=== PATIENT | female | born 1970 | race African-American/Black ===

== ENCOUNTER 2016-08-02 08:48 | Emergency (ER) | payer SELFPAY ==
--- NOTE | 2016-08-02 09:36 | ER Document Report ---
ED General Pain - General Chief Complaint: Pain All Over Stated Complaint: BACK,STOMACH PAIN Time Seen by Provider: 08/02/16 09:33 Mode of Arrival: Ambulatory Information source: Patient Notes: Patient is a 45-year-old -[place] female who presents to the ER today for tightness in her upper back, shooting pains down both of her arms and legs occasionally for the past 3 weeks, Abdominal cramping in the middle of her abdomen "shooting up and down" and lack of a menstrual cycle since June 18. She did take a test at home and states that it was negative. She denies any injury to her back, abnormal discharge, fever, chills, dysuria, low back pain, nausea, vomiting, constipation or diarrhea. Her last bowel movement was yesterday and normal. TRAVEL OUTSIDE OF THE [place] IN LAST 30 DAYS: No - Related Data Allergies/Adverse Reactions: No Known Allergies Allergy (Verified 08/02/16 09:04) Past Medical History - General Information source: Patient - Social History Smoking Status: Unknown if Ever Smoked Family History: Reviewed & Not Pertinent Patient has suicidal ideation: No Patient has homicidal ideation: No - Past Medical History Cardiac Medical History: Reports: Hx Hypertension Neurological Medical History: Reports: Hx Migraine Renal/ Medical History: Denies: Hx Peritoneal Dialysis Past Surgical History: Reports: Hx Tubal Ligation - Immunizations Hx Diphtheria, Pertussis, Tetanus Vaccination: Yes Review of Systems - Review of Systems Constitutional: No symptoms reported EENT: No symptoms reported Cardiovascular: No symptoms reported Respiratory: No symptoms reported Gastrointestinal: See HPI Genitourinary: No symptoms reported Female Genitourinary: See HPI Musculoskeletal: See HPI Skin: No symptoms reported Hematologic/Lymphatic: No symptoms reported Neurological/Psychological: No symptoms reported Physical Exam - Vital signs Vitals: Temp Pulse Resp BP Pulse Ox 98.6 F 79 18 147/102 H 98 08/02/16 09:04 08/02/16 09:04 08/02/16 09:04 08/02/16 09:04 08/02/16 09:04 - Notes Notes: PHYSICAL EXAMINATION: GENERAL: Well-appearing and in no acute distress. HEAD: Atraumatic, normocephalic. EYES: Pupils equal round and reactive to light, extraocular movements intact, sclera anicteric, conjunctiva are normal. ENT: ear canals without erythema or foreign body, TMs pearly fernandez with good bony landmarks, nares patent, oropharynx clear without exudates. Moist mucous membranes. NECK: Normal range of motion, supple without lymphadenopathy LUNGS: CTAB and equal. No wheezes rales or rhonchi. HEART: Regular rate and rhythm without murmurs ABDOMEN: Soft, extremely mild periUmbilical, suprapubic and epigastric tenderness. No guarding, no rebound BACK: tender to trapezius muscles bilaterally, no vertebral tenderness, normal ROM GI/: no CVA tenderness EXTREMITIES: No tenderness to arms or legs, Normal range of motion, no pitting edema. No cyanosis. NEUROLOGICAL: Cranial nerves grossly intact. Normal sensory/motor exams. PSYCH: Normal mood, normal affect. SKIN: Warm, Dry, normal turgor, no rashes or lesions noted Course - Re-evaluation Re-evalutation: 08/02/16 13:42 Lab work all unremarkable today including a negative test. Patient feels better after muscle relaxer. Patient to follow-up with her [facility]. She declined pelvic exam today. 08/02/16 14:14 pt is up for discharge. She is now saying that she is unhappy with care because we did not address her chest pain that she says she told us about when she came in. When I have been in the room 3 times, she has not mentioned chest pain or shortness of breath. Her complaints were all limb pain with upper back pain and abdominal pain with no period since june 18. She has been asleep in the room every time I have gone in, I've woken her from a nap. I offered at this time to perform EKG, but she is angry and wants to leave. Her vitals are all stable. - Vital Signs Vital signs: Temp Pulse Resp BP Pulse Ox 98.6 F 79 18 147/102 H 98 08/02/16 09:04 08/02/16 09:04 08/02/16 09:04 08/02/16 09:04 08/02/16 09:04 - Laboratory Result Diagrams: 08/02/16 12:41 08/02/16 12:41 Laboratory results interpreted by me: 08/02/16 08/02/16 12:41 12:41 RDW 14.9 H Eosinophils % 6.1 H Direct Bilirubin 0.5 H Discharge - Discharge Clinical Impression: Abdominal cramping, Upper back pain Condition: Stable Disposition: HOME, SELF-CARE Additional Instructions: Return immediately for any new or worsening symptoms. Follow up with primary care provider, call tomorrow to make followup appointment. Prescriptions: Cyclobenzaprine HCl [Flexeril 10 mg Tablet] 10 mg PO TIDP PRN #15 tab PRN Reason: Forms: Return to Work Referrals: DOUG ROSARIO MD [Primary Care Provider] - Follow up as needed
[2016-08-02] MEDS ORDERED: CYCLOBENZAPRINE HCL 10 MG TABLET PO ONE (09:46)
[2016-08-02] MEDS ORDERED: NORMAL SALINE 1000 ML 1,000 ML IV ONE (10:15)
[2016-08-02 12:17] LABS: APPEARANCE,URINE SLIGHTLY-CLOUDY; BILIRUBIN,URINE NEGATIVE (NEGATIVE); GLUCOSE, URINE NEGATIVE (NEGATIVE); KETONES,URINE NEGATIVE (NEGATIVE); LEUKOCYTE ESTERASE,URINE NEGATIVE (NEGATIVE); NITRITE,URINE NEGATIVE (NEGATIVE); PROTEIN,URINE NEGATIVE (NEGATIVE); URINE SPECIFIC GRAVITY 1.013; UROBILINOGEN,URINE NEGATIVE mg/dL (<2.0)
[2016-08-02 12:54] LABS: ABSOLUTE BASOPHILS # (AUTO) 0.1 10^3/uL (0.0-0.2); ABSOLUTE EOSINOPHILS # (AUTO) 0.3 10^3/uL (0.0-0.6); ABSOLUTE LYMPHOCYTES (AUTO) 2.1 10^3/uL (0.5-4.7); ABSOLUTE MONOCYTES (AUTO) 0.4 10^3/uL (0.1-1.4); ABSOLUTE NEUT (AUTO) 2.7 10^3/uL (1.7-8.2); BASOPHILS % (AUTO) 1.1 % (0-2); EOSINOPHILS % (AUTO) 6.1 % (0-6); HEMATOCRIT 39.5 % (36.0-47.0); HEMOGLOBIN 12.8 g/dL (12.0-15.5); HGB HCT DIFFERENCE -1.1; LYMPHOCYTES % (AUTO) 37.6 % (13-45); MEAN CORPUSCULAR HEMOGLOBIN 27.7 pg (27.0-33.4); MEAN CORPUSCULAR HGB CONC 32.4 g/dL (32.0-36.0); MEAN CORPUSCULAR VOLUME 86 fl (80-97); MONOCYTES % (AUTO) 6.9 % (3-13); RED BLOOD COUNT 4.62 10^6/uL (3.72-5.28); RED CELL DISTRIBUTION WIDTH 14.9 % (11.5-14.0); SEGMENTED NEUTROPHILS % (AUTO) 48.3 % (42-78); WHITE BLOOD COUNT 5.5 10^3/uL (4.0-10.5)
[2016-08-02 13:12] LABS: ALANINE AMINOTRANSFERASE 21 U/L (9-52); ALBUMIN 4.2 g/dL (3.5-5.0); ALKALINE PHOSPHATASE 75 U/L (38-126); ANION GAP 10 (5-19); ASPARTATE AMINO TRANSFERASE 16 U/L (14-36); BILIRUBIN,DIRECT 0.5 mg/dL (0.0-0.4); BILIRUBIN,TOTAL 0.7 mg/dL (0.2-1.3); BLOOD UREA NITROGEN 20 mg/dL (7-20); CALCIUM 9.7 mg/dL (8.4-10.2); CARBON DIOXIDE 27 mmol/L (22-30); CHLORIDE 106 mmol/L (98-107); CREATININE RESULT 0.89 mg/dL (0.52-1.25); GLUCOSE 91 mg/dL (75-110); LIPASE 79.5 U/L (23-300); POTASSIUM 4.3 mmol/L (3.6-5.0); SODIUM 143.2 mmol/L (137-145); TOTAL PROTEIN 7.4 g/dL (6.3-8.2)
[2016-08-02 14:57] VITALS: BP 149/93
== END 2016-08-02 14:55 | disposition home or self-care (01) ==
LOC: ER 08:48
DX: M54.6 Pain in thoracic spine (principal); R10.33 Periumbilical pain; R10.13 Epigastric pain; I10 Essential (primary) hypertension; Z86.51 Personal history of combat and operational stress reaction
CPT/HCPCS: 99283; 96360; 96361; 36415; 83690; 84703; 85025; 80053; 81001; J7030

== ENCOUNTER 2016-10-04 17:43 | Emergency (ER) | payer SELFPAY ==
[2016-10-04] MEDS ORDERED: ASPIRIN 81 MG TABLET, CHEWABLE PO ONE (18:25)
--- NOTE | 2016-10-04 18:34 | ER Document Report ---
ED Medical Screen (RME) - General Chief Complaint: Chest Pain Stated Complaint: CHEST PAINS Time Seen by Provider: 10/04/16 18:21 Information source: Patient, [facility] Records TRAVEL OUTSIDE OF THE [place] IN LAST 30 DAYS: No - HPI Onset: Other Onset/Duration: Gradual, Waxing and waning Quality of pain: Sharp Severity: Mild Associated Symptoms: Other - pedal edema Similar symptoms previously: Yes Recently seen / treated by doctor: No Notes: 10/04/16 18:32 Patient is a 46-year-old female with history of multiple medical problems. Patient presents with several days of sharp left-sided chest pain which is spontaneous in onset and resolution. Patient states she has these pains for quite some time and has never been given diagnosis. Patient presents today out of concern for these pains associated with lower extremity swelling. No shortness of breath. No nausea or sweats. Patient also reports a sore throat. No fevers or chills. - Related Data Allergies/Adverse Reactions: No Known Allergies Allergy (Verified 10/04/16 18:12) Past Medical History - General Information source: Patient, [facility] Records - Social History Frequency of alcohol use: None Drug Abuse: None - Past Medical History Cardiac Medical History: Reports: Hx Hypertension Neurological Medical History: Reports: Hx Migraine Renal/ Medical History: Denies: Hx Peritoneal Dialysis Past Surgical History: Reports: Hx Tubal Ligation - Immunizations Hx Diphtheria, Pertussis, Tetanus Vaccination: Yes Review of Systems - Review of Systems EENT: Throat pain Cardiovascular: Chest pain, Edema -: Yes All other systems reviewed and negative Physical Exam - Vital signs Vitals: Temp Pulse Resp BP Pulse Ox 98.3 F 87 16 149/97 H 95 10/04/16 17:58 10/04/16 17:58 10/04/16 17:58 10/04/16 17:58 10/04/16 17:58 Interpretation: Normal - General General appearance: Appears well, Alert - HEENT Head: Normocephalic, Atraumatic Eyes: Normal Pupils: PERRL - Respiratory Respiratory status: No respiratory distress Chest status: Nontender Breath sounds: Normal Chest palpation: Normal - Cardiovascular Rhythm: Regular Heart sounds: Normal auscultation Murmur: No - Abdominal Inspection: Normal Distension: No distension Bowel sounds: Normal Tenderness: Nontender Organomegaly: No organomegaly - Back Back: Normal, Nontender - Extremities General upper extremity: Normal inspection, Nontender, Normal color, Normal ROM , Normal temperature. No: Edema General lower extremity: Normal inspection, Nontender, Normal color, Normal ROM , Normal temperature, Normal weight bearing. No: Edema, Tanvir's sign - Neurological Neuro grossly intact: Yes Cognition: Normal Orientation: AAOx4 [place] Coma Scale Eye Opening: Spontaneous Braxton Coma Scale Verbal: Oriented [place] Coma Scale Motor: Obeys Commands Braxton Coma Scale Total: 15 Speech: Normal Motor strength normal: LUE, RUE, LLE, RLE Sensory: Normal - Psychological Associated symptoms: Normal affect, Normal mood - Skin Skin Temperature: Warm Skin Moisture: Dry Skin Color: Normal Course - Re-evaluation Re-evalutation: 10/04/16 18:34 Patient will be taken to the back treatment area for further evaluation and management. Disposition will be by ED provider who continues her care. - Vital Signs Vital signs: Temp Pulse Resp BP Pulse Ox 98.3 F 87 18 149/97 H 95 10/04/16 17:58 10/04/16 17:58 10/04/16 18:15 10/04/16 17:58 10/04/16 17:58 - EKG Interpretation by Co EKG shows normal: Sinus rhythm Rate: Normal - 84 [place]/QRS: Left axis deviation Additional EKG results interpreted by ri: 10/04/16 18:[address]-T wave changes noted
--- NOTE | 2016-10-04 19:00 | RADIOLOGY REPORT (SQ) ---
EXAM DESCRIPTION: CHEST SINGLE VIEW COMPLETED DATE/TIME: 10/04/2016 6:53 pm REASON FOR STUDY: cp COMPARISON: None. EXAM PARAMETERS: NUMBER OF VIEWS: One view. TECHNIQUE: Single frontal radiographic view of the chest acquired. RADIATION DOSE: NA LIMITATIONS: None. FINDINGS: LUNGS AND PLEURA: No opacities, masses or pneumothorax. No pleural effusion. MEDIASTINUM AND HILAR STRUCTURES: No masses. Contour normal. HEART AND VASCULAR STRUCTURES: Heart normal in size. Normal vasculature. BONES: No acute findings. HARDWARE: None in the chest. OTHER: No other significant finding. IMPRESSION: NO ACUTE RADIOGRAPHIC FINDING IN THE CHEST. TECHNICAL DOCUMENTATION: JOB ID: [id number]
--- NOTE | 2016-10-04 19:08 | EKG REPORT ---
SEVERITY:- BORDERLINE ECG - SINUS RHYTHM LEFT AXIS DEVIATION BORDERLINE T ABNORMALITIES, ANTERIOR LEADS : Confirmed by: Jose C Gaines MD 04-Oct-2016 19:07:02
--- NOTE | 2016-10-04 19:19 | ER Document Report ---
ED General - General Chief Complaint: Chest Pain Stated Complaint: CHEST PAINS Time Seen by Provider: 10/04/16 18:21 Notes: The patient is a 46-year-old female, past medical history hypertension, migraines, presents with 1 day of left ankle swelling and mild calf pain. In addition, she has had several months of sharp left-sided chest pain that begins at rest and quickly goes away. In addition, she is having mild abdominal cramping intermittently over the past several days. She is going through menopause at this time. Denies current chest pain, nausea, vomiting, shortness of breath, urinary symptoms, flank pain, fevers, hematuria, dysuria, rash, numbness or tingling. TRAVEL OUTSIDE OF THE [place] IN LAST 30 DAYS: No - Related Data Allergies/Adverse Reactions: No Known Allergies Allergy (Verified 10/04/16 18:12) Past Medical History - General Information source: Patient, [facility] Records - Social History Smoking Status: Never Smoker Frequency of alcohol use: None Drug Abuse: None Family History: Reviewed & Not Pertinent Patient has suicidal ideation: No - Past Medical History Cardiac Medical History: Reports: Hx Hypertension Neurological Medical History: Reports: Hx Migraine Renal/ Medical History: Denies: Hx Peritoneal Dialysis Past Surgical History: Reports: Hx Tubal Ligation - Immunizations Hx Diphtheria, Pertussis, Tetanus Vaccination: Yes Review of Systems - Review of Systems Notes: REVIEW OF SYSTEMS: CONSTITUTIONAL: -fevers, -chills EENT: -eye pain, -difficulty swallowing, -nasal congestion CARDIOVASCULAR: +chest pain, -syncope. RESPIRATORY: -cough, -SOB GASTROINTESTINAL: -abdominal pain, -nausea, -vomiting, -diarrhea GENITOURINARY: -dysuria, -hematuria MUSCULOSKELETAL: +left ankle swelling, -back pain, -neck pain SKIN: -rash or skin lesions. HEMATOLOGIC: -easy bruising or bleeding. LYMPHATIC: -swollen, enlarged glands. NEUROLOGICAL: -altered mental status or loss of consciousness, -headache, - neurologic symptoms PSYCHIATRIC: -anxiety, -depression. ALL OTHER SYSTEMS REVIEWED AND NEGATIVE. Physical Exam - Vital signs Vitals: Temp Pulse Resp BP Pulse Ox 98.3 F 87 16 149/97 H 95 10/04/16 17:58 10/04/16 17:58 10/04/16 17:58 10/04/16 17:58 07/11/17 17:58 - Notes Notes: PHYSICAL EXAMINATION: GENERAL: Well-appearing, well-nourished and in no acute distress. HEAD: Atraumatic, normocephalic. EYES: Pupils equal round and reactive to light, extraocular movements intact, sclera anicteric, conjunctiva are normal. ENT: nares patent, oropharynx clear without exudates. Moist mucous membranes. NECK: Normal range of motion, supple without lymphadenopathy LUNGS: Breath sounds clear to auscultation bilaterally and equal. No wheezes rales or rhonchi. HEART: Regular rate and rhythm without murmurs ABDOMEN: Soft, nontender, normoactive bowel sounds. No guarding, no rebound. No masses appreciated. EXTREMITIES: 1+ pitting edema in left ankle, normal range of motion. No cyanosis. NEUROLOGICAL: Cranial nerves grossly intact. Normal speech, normal gait. Normal sensory and motor exams. PSYCH: Normal mood, normal affect. SKIN: Warm, Dry, normal turgor, no rashes or lesions noted. Course - Re-evaluation Re-evalutation: HEART score is 3. PERC negative. Repeat EKGs and troponin does not show any evidence of active ischemia. Her left lower extremity ultrasound does not show evidence of DVT. Other labs and urine are unremarkable and she is not . Instructed her to follow-up with her primary care physician for further evaluation of her chest pain also instructed her to wear compression stockings and keep her leg elevated for her mild peripheral edema. Given strict return precautions and she understands. - Vital Signs Vital signs: Temp Pulse Resp BP Pulse Ox 98.3 F 87 18 149/97 H 95 10/04/16 17:58 10/04/16 17:58 10/04/16 18:15 10/04/16 17:58 10/04/16 17:58 - Laboratory Result Diagrams: 10/04/16 21:10 10/04/16 21:10 Laboratory results interpreted by me: 10/04/16 10/04/16 21:10 21:10 Hgb 11.7 L RDW 14.7 H Chloride 109 H - Diagnostic Test Radiology reviewed: Image reviewed, Reports reviewed Radiology results interpreted by me: CXR: NAD LLE US: No DVT - EKG Interpretation by Me EKG shows normal: Sinus rhythm, [place], Intervals, QRS Complexes Rate: Normal Additional EKG results interpreted by me: Non-specific T-wave changes in anterior leads Discharge - Discharge Clinical Impression: Peripheral edema Chest pain Qualifiers: Chest pain type: unspecified Qualified Code(s): R07.9 - Chest pain, unspecified Condition: Stable Disposition: HOME, SELF-CARE Additional Instructions: CHEST PAIN OF UNCLEAR CAUSE: The exact cause of your chest pain isn't clear. Fortunately, there is no evidence of a dangerous medical condition. Further testing may be required to find the source of the pain. Most often, we find that this pain is coming from the chest wall -- the muscles or rib joints in the chest. But chest pain can come from the lung and lung lining, the esophagus, the heart valves or heart lining, and even the stomach or gallbladder. Rest. Eat lightly until the pain is gone. We may prescribe medicine for pain and inflammation. You should call the physician immediately if the pain radiates to the shoulder, jaw or arms; if you start to run a fever or develop a cough; or if you develop shortness of breath, or other new or alarming symptoms. NORMAL EXAM AND WORKUP: At this time, your examination and workup show no significant abnormality. No significant abnormal physical findings were noted. All laboratory, EKG, and imaging (x-ray, CT scans, ultrasound) studies that were ordered show no significant abnormality. Although your examination and all studies that were ordered showed no significant abnormal finding, there are no examinations and no studies that are 100% accurate. There is always the possibility that some abnormality could exist and not be detected with physical examination or within the limits and capabilities of laboratory and other studies. You should return or follow up as you were instructed on your visit today for further evaluation if your symptoms do not resolve. CHEST WALL PAIN: Your chest pain may be coming from the chest wall. This is often caused by straining the muscles or joints in the chest during physical activity, direct trauma, coughing, or vigorous vomiting. Persons with arthritis are especially prone to this type of pain, due to inflammation of the cartilage joints near the breast bone. Occasionally, no cause can be found. Rest from strenuous physical activity. This kind of chest pain is usually made worse by movement of the chest. Depending on the symptoms, we may prescribe medicine for pain, muscle relaxation, and antiinflammatory effects. If the pain is new, and seems to be due to muscle strain, cold packs can help. Otherwise, apply gentle warmth to the painful area for 15 minutes every hour or two. You should call contact the doctor immediately if things change. Further evaluation is needed if you develop a fever or cough, if the nature of the pain changes, or if you become short of breath. ANGINA EPISODE: Your physician has diagnosed the pain you experienced as an episode of angina. Angina occurs when a portion of the heart muscle temporarily lacks oxygen. It does not cause any permanent heart damage, but serves as a warning. Hospitalization is not necessary now. Evaluation of your cardiac condition , and medical therapy for angina will be necessary. It's important you be sure to keep all appointments and take medication exactly as prescribed. Angina is usually treated with a type of "nitrate" medication. This is available as ointment, pills, or sublingual (under the tongue) tablets. Depending on your clinical situation, other medications may be added to help control angina. These may include beta blockers or calcium blockers. If episodes of angina are occurring with increased frequency, or if chest pain lasts longer than 15 minutes or does not respond to nitroglycerin, you must seek emergency medical care immediately. ACID REFLUX DISEASE (GERD): Gastro-Esophageal Reflux Disease (GERD) is caused by stomach acid refluxing back up into the esophagus. The valve at the end of the esophagus may be weak. This is common in persons with a hiatal hernia. GERD symptoms can include indigestion, chest pain, heartburn, or food "sticking." Certain foods, alcohol, and aspirin can make GERD worse. Treatment depends on the severity. Usually, antacids or acid-suppressing medicines are used. When the esophagus is acutely inflamed, the physician will often prescribe membrane-protective drugs such as Carafate. Some patients benefit from medication such as Reglan that tightens the valve at the top of the stomach. Avoid those foods that bring on your symptoms. For many people, these foods are coffee, chocolate, onions, garlic, and carbonated drinks. Don't use alcohol, aspirin, caffeine, or tobacco. Don't eat late at night -- within 4 hours of bedtime. Don't over-eat. If necessary, elevate the head of your bed about 4 inches so that stomach acid will not roll up into your esophagus. Call the doctor if you develop severe chest pain, inability to swallow fluids, fever, or worsening symptoms. FOLLOW-UP CARE: If you have been referred to a physician for follow-up care, call the physician s office for an appointment as you were instructed or within the next two days. If you experience worsening or a significant change in your symptoms, notify the physician immediately or return to the Emergency Department at any time for re-evaluation. ABDOMINAL PAIN: There are many causes of abdominal pain. Pain can mean a serious problem requiring surgery (such as appendicitis). It can also be an innocent problem that goes away on its own (such as a viral infection). Often, time must pass to determine the cause of pain. The physician does not feel that hospitalization is necessary, at present. Things may change within the next 24 hours. Call the doctor or come back for re- examination if any problems occur, such as: (1) Pain that becomes more severe, steady, or becomes concentrated in one specific area. Also, pain that is more severe with movement or coughing. (2) Vomiting that persists or becomes more frequent. (3) Blood in the vomitus, urine, or bowel movements. Blood in the stool may have a tarry or black appearance. (4) Shaking chills or fever greater than 100 degrees F. (5) The abdomen becomes more distended or swollen. (6) Bowel movements cease. (7) Failure to improve as expected. NORMAL EXAM AND WORKUP: At this time, your examination and workup show no significant abnormality. No significant abnormal physical findings are noted. All laboratory, EKG, and imaging (x-ray, CT scans, ultrasound) studies that were ordered show no significant abnormality. Although your examination and all studies that were ordered showed no significant abnormal finding, there are no examinations and no studies that are 100% accurate. There is always the possibility that some abnormality could exist and not be detected with physical examination or within the limits and capabilities of laboratory and other studies. You should return or follow up as you were instructed on your visit today for further evaluation if your symptoms do not resolve. FOLLOW-UP CARE: If you have been referred to a physician for follow-up care, call the physician s office for an appointment as you were instructed or within the next two days. If you experience worsening or a significant change in your symptoms, notify the physician immediately or return to the Emergency Department at any time for re-evaluation.
[2016-10-04 20:07] LABS: APPEARANCE,URINE SLIGHTLY-CLOUDY; BILIRUBIN,URINE NEGATIVE (NEGATIVE); GLUCOSE, URINE NEGATIVE (NEGATIVE); KETONES,URINE NEGATIVE (NEGATIVE); LEUKOCYTE ESTERASE,URINE NEGATIVE (NEGATIVE); NITRITE,URINE NEGATIVE (NEGATIVE); PROTEIN,URINE NEGATIVE (NEGATIVE); URINE SPECIFIC GRAVITY 1.024; UROBILINOGEN,URINE NEGATIVE mg/dL (<2.0)
[2016-10-04] MEDS ORDERED: NITROGLYCERIN 0.4 MG/TAB 25 TAB/BOTTLE SL PRN (20:37)
[2016-10-04 21:22] LABS: ABSOLUTE EOSINOPHILS # (AUTO) 0.5 10^3/uL (0.0-0.6); ABSOLUTE LYMPHOCYTES (AUTO) 2.7 10^3/uL (0.5-4.7); ABSOLUTE MONOCYTES (AUTO) 0.6 10^3/uL (0.1-1.4); ABSOLUTE NEUT (AUTO) 4.3 10^3/uL (1.7-8.2); BASOPHILS % (AUTO) 0.5 % (0-2); HEMOGLOBIN 11.7 g/dL (12.0-15.5); HGB HCT DIFFERENCE -0.9; LYMPHOCYTES % (AUTO) 33.6 % (13-45); MEAN CORPUSCULAR HEMOGLOBIN 27.3 pg (27.0-33.4); MEAN CORPUSCULAR HGB CONC 32.4 g/dL (32.0-36.0); MEAN CORPUSCULAR VOLUME 84 fl (80-97); MONOCYTES % (AUTO) 7.4 % (3-13); RED BLOOD COUNT 4.27 10^6/uL (3.72-5.28); RED CELL DISTRIBUTION WIDTH 14.7 % (11.5-14.0); SEGMENTED NEUTROPHILS % (AUTO) 52.5 % (42-78); WHITE BLOOD COUNT 8.2 10^3/uL (4.0-10.5)
[2016-10-04 21:40] LABS: ALANINE AMINOTRANSFERASE 26 U/L (9-52); ALBUMIN 3.8 g/dL (3.5-5.0); ALKALINE PHOSPHATASE 79 U/L (38-126); ANION GAP 8 (5-19); ASPARTATE AMINO TRANSFERASE 19 U/L (14-36); BILIRUBIN,DIRECT 0.3 mg/dL (0.0-0.4); BILIRUBIN,TOTAL 0.4 mg/dL (0.2-1.3); BLOOD UREA NITROGEN 17 mg/dL (7-20); CARBON DIOXIDE 24 mmol/L (22-30); CHLORIDE 109 mmol/L (98-107); CREATININE RESULT 0.84 mg/dL (0.52-1.25); GLUCOSE 106 mg/dL (75-110); POTASSIUM 4.3 mmol/L (3.6-5.0)
[2016-10-04 21:53] LABS: TROPONIN I < 0.012 ng/mL
[2016-10-05 02:01] VITALS: BP 135/100
--- NOTE | 2016-10-05 08:11 | EKG REPORT ---
SEVERITY:- BORDERLINE ECG - SINUS RHYTHM LEFT AXIS DEVIATION BORDERLINE T ABNORMALITIES, ANTERIOR LEADS : Confirmed by: Jose C Gaines MD 05-Oct-2016 08:11:03
--- NOTE | 2016-10-05 13:11 | XCELERA REPORT ---
[address] [address] Lower Extremity Venous Evaluation Name: ANAIS AVILEZ Age: 46 yrs Gender: Female : 1970 Patient Status: Emergency Patient Location: ER Study Date: 10/04/2016 08:22 PM Procedure: Color flow and duplex imaging of the veins of the left lower extremity as well as the right Common Femoral vein. Reason For Study: left leg swelling Ordering Physician: KETURAH NAVA Performed By: Geo Levy Right Sided Venous Evaluation The right common femoral vein is fully compressible. Spontaneous and phasic flow is present in the right common femoral vein. Left Sided Venous Evaluation Normal vessel filling wall to wall, compression and augmentation as well as Colour flow down to the infrageniculate veins. Critical Findings Called in to Dr Nava in the ER. Interpretation Summary No duplex evidence of DVT or obstruction in the left lower extremity nor in the right Common Femoral vein. : KETURAH NAVA > Ian Mcneil
== END 2016-10-05 00:45 | disposition home or self-care (01) ==
LOC: ER 17:43
DX: R60.9 Edema, unspecified (principal); R07.9 Chest pain, unspecified; I10 Essential (primary) hypertension; Z98.51 Tubal ligation status
CPT/HCPCS: 36415; 71010; 80053; 81001; 81025; 83880; 84484; 85025; 93005; 93010; 93971; 99285

== ENCOUNTER 2016-11-15 15:30 | Emergency (ER) | payer SELFPAY ==
[2016-11-15 15:35] VITALS: BP 135/96
--- NOTE | 2016-11-15 16:45 | ER Document Report ---
ED General - General Chief Complaint: Eye Pain Stated Complaint: EYE PAIN Time Seen by Provider: 11/15/16 16:22 Mode of Arrival: Ambulatory Notes: 26-year-old female presents to ED for complaint of not being able to sleep and burning in her eyes and then during the day being very sleepy at work. States this is been going on for couple weeks. She states she will be start thinking in the middle of the night and then she cannot go to sleep. TRAVEL OUTSIDE OF THE [place] IN LAST 30 DAYS: No - HPI Onset: Other - Couple weeks Onset/Duration: Intermittent Quality of pain: Burning Severity: Moderate Pain Level: 3 Associated symptoms: Other - Insomnia, eyes burning, feeling anxious. 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 Lives with: Family Family History: Reviewed & Not Pertinent Patient has suicidal ideation: No Patient has homicidal ideation: No - Past Medical History Cardiac Medical History: Reports: Hx Hypertension Pulmonary Medical History: Reports: None EENT Medical History: Reports: None Neurological Medical History: Reports: Hx Migraine Endocrine Medical History: Reports: None Renal/ Medical History: Reports: None Malignancy Medical History: Reports: None GI Medical History: Reports: None Musculoskeltal Medical History: Reports None Skin Medical History: Reports None Psychiatric Medical History: Reports: None Traumatic Medical History: Reports: None Infectious Medical History: Reports: None Past Surgical History: Reports: Hx Tubal Ligation, Other - lazer eye surgery - Immunizations Hx Diphtheria, Pertussis, Tetanus Vaccination: Yes Review of Systems - Review of Systems EENT: Eye pain - buring. denies: Eye discharge, Blurred vision, Tearing, Double vision Respiratory: Short of breath - when she can't sleep at night but not at this time Gastrointestinal: No symptoms reported Genitourinary: No symptoms reported Female Genitourinary: No symptoms reported Musculoskeletal: No symptoms reported Skin: No symptoms reported Hematologic/Lymphatic: No symptoms reported Neurological/Psychological: Other - insomnia -: Yes All other systems reviewed and negative Physical Exam - Vital signs Vitals: Temp Pulse BP Pulse Ox 99.0 F 89 135/96 H 95 11/15/16 15:33 11/15/16 15:33 11/15/16 15:33 11/15/16 15:33 Interpretation: Normal - General General appearance: Appears well, Alert - HEENT Head: Normocephalic, Atraumatic Eyes: Normal Conjunctiva: Normal Cornea: Normal Extraocular movements intact: Yes Eyelashes: Normal Pupils: PERRL Visual acuity- Right eye: 20/30 Visual acuity- Left eye: 20/30 Visual acuity- Both eyes: 20/30 Corrective lenses worn: No Lids everted for exam: bilateral: Normal Anterior chamber: Normal Fundascopic: Normal Visual dunn normal: Yes Ears: Normal External canal: Normal Tympanic membrane: Normal Sinus: Normal Nasal: Normal Mouth/Lips: Normal Pharynx: Normal Neck: Normal - Respiratory Respiratory status: No respiratory distress Chest status: Nontender Breath sounds: Normal Chest palpation: Normal - Cardiovascular Rhythm: Regular Heart sounds: Normal auscultation Murmur: No - Abdominal Inspection: Normal Distension: No distension Bowel sounds: Normal Tenderness: Nontender Organomegaly: No organomegaly - Back Back: Normal, Nontender - Extremities General upper extremity: Normal inspection, Nontender, Normal color, Normal ROM , Normal temperature General lower extremity: Normal inspection, Nontender, Normal color, Normal ROM , Normal temperature, Normal weight bearing. No: Tanvir's sign - Neurological Neuro grossly intact: Yes Cognition: Normal Orientation: AAOx4 Braxton Coma Scale Eye Opening: Spontaneous Braxton Coma Scale Verbal: Oriented Braxton Coma Scale Motor: Obeys Commands [place] Coma Scale Total: 15 Speech: Normal Motor strength normal: LUE, RUE, LLE, RLE Sensory: Normal - Psychological Associated symptoms: Normal affect, Normal mood - Skin Skin Temperature: Warm Skin Moisture: Dry Skin Color: Normal Course - Re-evaluation Re-evalutation: 11/15/16 16:[address] Sandoval as her exam was negative for me. He went in and examined the patient he and he agreed that the examination was negative. He stated that she will need to follow-up with the street light inspector. - Vital Signs Vital signs: Temp Pulse Resp BP Pulse Ox 99.0 F 89 135/96 H 95 11/15/16 15:33 11/15/16 15:33 11/15/16 15:33 11/15/16 15:33 Discharge - Discharge Clinical Impression: Insomnia Qualifiers: Insomnia type: unspecified Qualified Code(s): G47.00 - Insomnia, unspecified Eye pain Qualifiers: Laterality: bilateral Qualified Code(s): H57.13 - Ocular pain, bilateral Condition: Stable Disposition: HOME, SELF-CARE Additional Instructions: Insomnia Everybody has trouble sleeping now and then. When it becomes a frequent problem, you must look for an underlying cause. Depression can interfere with sleep. Anxiety keeps people from falling asleep, while true depression causes fitful sleep and early awakening. If you think anxiety or depression might be your problem, your doctor can help. Many medicines can interfere with sleep. Try cutting back or eliminating caffeine. Watch out for "energizing" vitamins and herbs! Alcohol interferes powerfully with normal sleep. "Rebound insomnia" results when you stop taking sedating medicines like antihistamines, antianxiety medicine, or sleeping pills. Any medical problem that causes pain or bladder discomfort can interfere with sleep. Discuss any problem you have with your doctor. Get regular exercise. Have regular sleep times. Don't "sleep in." Avoid late afternoon naps. Sleeping pills may be temporarily helpful, but are never a long-term solution. He was seen today for bilateral eye pain for over a week. Your eye exam was negative. We are recommending you follow-up with street light inspector which is strategic sourcing specialist for your eye burning pain. Use Tylenol or ibuprofen PM for your insomnia, you can also use Unisom or Benadryl. These will help you to go to sleep. You could use [id number]-[id number] allergy eyedrops and to you can follow-up with the street light inspector. You will also need to follow-up with your primary doctor for your insomnia FOLLOW-UP CARE: If you have been referred to a physician for follow-up care, call the physician s office for an appointment as you were instructed or within the next two days. If you experience worsening or a significant change in your symptoms, notify the physician immediately or return to the Emergency Department at any time for re-evaluation. Forms: Elevated Blood Pressure Referrals: DOUG ROSARIO MD [Primary Care Provider] - Follow up as needed NICOLE BRICE DO [ACTIVE STAFF] - Follow up as needed
== END 2016-11-15 17:22 | disposition home or self-care (01) ==
LOC: ER 15:30
DX: H57.13 Ocular pain, bilateral (principal); G47.00 Insomnia, unspecified; I10 Essential (primary) hypertension
CPT/HCPCS: 99283

== ENCOUNTER 2016-12-08 09:02 | Emergency (ER) | payer SELFPAY ==
[2016-12-08] MEDS ORDERED: ASPIRIN 325 MG TABLET PO ONE (09:51)
--- NOTE | 2016-12-08 09:53 | ER Document Report ---
ED Medical Screen (RME) - General Chief Complaint: Abdominal Pain Stated Complaint: CHEST PAIN, ABDOMINAL PAIN Time Seen by Provider: 12/08/16 09:50 Mode of Arrival: Ambulatory Information source: Patient TRAVEL OUTSIDE OF THE [place] IN LAST 30 DAYS: No - HPI Patient complains to provider of: chest/abd pain Onset: Other - pt with onset of chest and abdominal pain yesterday. Has not taken ASA. - Related Data Allergies/Adverse Reactions: No Known Allergies Allergy (Verified 12/08/16 09:18) Past Medical History - Social History Chew tobacco use (# tins/day): No Frequency of alcohol use: Occasional Drug Abuse: None - Past Medical History Cardiac Medical History: Reports: Hx Hypertension Neurological Medical History: Reports: Hx Migraine Renal/ Medical History: Denies: Hx Peritoneal Dialysis Past Surgical History: Reports: Hx Tubal Ligation, Other - lazer eye surgery - Immunizations Hx Diphtheria, Pertussis, Tetanus Vaccination: Yes Physical Exam - Vital signs Vitals: Temp Pulse Resp BP Pulse Ox 98.5 F 73 14 152/97 H 100 12/08/16 09:18 12/08/16 09:18 12/08/16 09:18 12/08/16 09:18 12/08/16 09:18 Course - Vital Signs Vital signs: Temp Pulse Resp BP Pulse Ox 98.5 F 73 14 152/97 H 100 12/08/16 09:18 12/08/16 09:18 12/08/16 09:18 12/08/16 09:18 12/08/16 09:18
[2016-12-08 10:12] LABS: APPEARANCE,URINE SLIGHTLY-CLOUDY; BILIRUBIN,URINE NEGATIVE (NEGATIVE); GLUCOSE, URINE NEGATIVE (NEGATIVE); KETONES,URINE NEGATIVE (NEGATIVE); LEUKOCYTE ESTERASE,URINE NEGATIVE (NEGATIVE); NITRITE,URINE NEGATIVE (NEGATIVE); PROTEIN,URINE NEGATIVE (NEGATIVE); URINE SPECIFIC GRAVITY 1.016; UROBILINOGEN,URINE NEGATIVE mg/dL (<2.0)
--- NOTE | 2016-12-08 10:14 | EKG REPORT ---
SEVERITY:- BORDERLINE ECG - SINUS RHYTHM LEFT AXIS DEVIATION BORDERLINE T WAVE ABNORMALITIES : Confirmed by: Samy Torres 08-Dec-2016 10:14:07
--- NOTE | 2016-12-08 10:28 | ER Document Report ---
ED GI/ - General Chief Complaint: Abdominal Pain Stated Complaint: CHEST PAIN, ABDOMINAL PAIN Time Seen by Provider: 12/08/16 09:50 Mode of Arrival: Ambulatory Information source: Patient TRAVEL OUTSIDE OF THE [place] IN LAST 30 DAYS: No - HPI Patient complains to provider of: Abdominal pain Onset: Yesterday Timing/Duration: Sudden Quality of pain: Sharp, Stabbing Severity at maximum: Moderate Severity in ED: Moderate Location: Epigastric Associated symptoms: Chills, Nausea Exacerbated by: Denies, Standing Similar symptoms previously: No Recently seen / treated by doctor: No Notes: 12/08/16 10:43 Patient is a 46-year-old female who presents to the emergency room today complaining of 2 day history of sharp stabbing epigastric pain that radiates up into her chest at times, she reports associated nausea and hot flashes but no vomiting, no diarrhea, had a normal bowel movement this morning, denies any fever, she denies any urinary or vaginal symptoms, has a history of ovarian cyst but this pain is much higher than where she experienced pain from that - Related Data Allergies/Adverse Reactions: No Known Allergies Allergy (Verified 12/08/16 09:18) Past Medical History - General Information source: Patient - Social History Smoking Status: Never Smoker Chew tobacco use (# tins/day): No Frequency of alcohol use: Occasional Drug Abuse: None Family History: Reviewed & Not Pertinent - Past Medical History Cardiac Medical History: Reports: Hx Hypertension Neurological Medical History: Reports: Hx Migraine Renal/ Medical History: Denies: Hx Peritoneal Dialysis Past Surgical History: Reports: Hx Tubal Ligation, Other - lazer eye surgery - Immunizations Hx Diphtheria, Pertussis, Tetanus Vaccination: Yes Review of Systems - Review of Systems Constitutional: No symptoms reported EENT: No symptoms reported Cardiovascular: No symptoms reported Respiratory: No symptoms reported Gastrointestinal: See HPI Genitourinary: No symptoms reported Female Genitourinary: No symptoms reported Musculoskeletal: No symptoms reported Skin: No symptoms reported Hematologic/Lymphatic: No symptoms reported Neurological/Psychological: No symptoms reported -: Yes All other systems reviewed and negative Physical Exam - Vital signs Vitals: Temp Pulse Resp BP Pulse Ox 98.5 F 73 14 152/97 H 100 12/08/16 09:18 12/08/16 09:18 12/08/16 09:18 12/08/16 09:18 12/08/16 09:18 Interpretation: Normal - General General appearance: Appears well, Alert - HEENT Head: Normocephalic, Atraumatic Eyes: Normal Pupils: PERRL - Respiratory Respiratory status: No respiratory distress Chest status: Nontender Breath sounds: Normal Chest palpation: Normal - Cardiovascular Rhythm: Regular Heart sounds: Normal auscultation Murmur: No - Abdominal Distension: No distension Bowel sounds: Normal Tenderness: Tender - Gastric Organomegaly: No organomegaly - Back Back: Normal, Nontender - Extremities General upper extremity: Normal inspection, Nontender, Normal color, Normal ROM , Normal temperature General lower extremity: Normal inspection, Nontender, Normal color, Normal ROM , Normal temperature, Normal weight bearing. No: Tanvir's sign - Neurological Neuro grossly intact: Yes Cognition: Normal Orientation: AAOx4 Braxton Coma Scale Eye Opening: Spontaneous Braxton Coma Scale Verbal: Oriented [place] Coma Scale Motor: Obeys Commands [place] Coma Scale Total: 15 Speech: Normal Motor strength normal: LUE, RUE, LLE, RLE Sensory: Normal - Psychological Associated symptoms: Normal affect, Normal mood - Skin Skin Temperature: Warm Skin Moisture: Dry Skin Color: Normal Course - Re-evaluation Re-evalutation: 12/08/16 17:49 Lab and imaging findings were discussed with patient at bedside which are unremarkable, patient was advised to follow-up with a primary care provider or return if symptoms worsen, patient acknowledges understanding and agreement with this plan - Vital Signs Vital signs: Temp Pulse Resp BP Pulse Ox 98.3 F 70 16 150/95 H 100 12/08/16 13:40 12/08/16 13:40 12/08/16 13:40 12/08/16 13:40 12/08/16 13:40 - Laboratory Result Diagrams: 12/08/16 11:40 12/08/16 11:40 Laboratory results interpreted by me: 12/08/16 11:40 RDW 14.4 H Eosinophils % 6.7 H - Diagnostic Test Radiology reviewed: Image reviewed, Reports reviewed - EKG Interpretation by Me EKG shows normal: Sinus rhythm Rate: Normal Rhythm: NSR Discharge - Discharge Clinical Impression: Epigastric abdominal pain Condition: Stable Disposition: HOME, SELF-CARE Instructions: Abdominal Pain ([facility]) Additional Instructions: Follow up with your primary care provider in one to 2 days. Return to the emergency room immediately if symptoms worsen or any additional concerns. Prescriptions: Ondansetron [Zofran Odt 4 mg Tablet] 1 - 2 tab PO Q4H #10 tab.rapdis Tramadol HCl/Acetaminophen [Ultracet 37.5 mg/325 mg Tablet] 1 each PO Q6 #10 tablet Forms: Return to Work Referrals: DOUG ROSARIO MD [Primary Care Provider] - Follow up as needed
[2016-12-08 12:00] LABS: ABSOLUTE BASOPHILS # (AUTO) 0.1 10^3/uL (0.0-0.2); ABSOLUTE EOSINOPHILS # (AUTO) 0.3 10^3/uL (0.0-0.6); ABSOLUTE LYMPHOCYTES (AUTO) 1.7 10^3/uL (0.5-4.7); ABSOLUTE MONOCYTES (AUTO) 0.4 10^3/uL (0.1-1.4); ABSOLUTE NEUT (AUTO) 2.3 10^3/uL (1.7-8.2); EOSINOPHILS % (AUTO) 6.7 % (0-6); HEMATOCRIT 38.9 % (36.0-47.0); HGB HCT DIFFERENCE 0.1; LYMPHOCYTES % (AUTO) 35.4 % (13-45); MEAN CORPUSCULAR HEMOGLOBIN 28.5 pg (27.0-33.4); MEAN CORPUSCULAR HGB CONC 33.6 g/dL (32.0-36.0); MEAN CORPUSCULAR VOLUME 85 fl (80-97); MONOCYTES % (AUTO) 9.2 % (3-13); RED BLOOD COUNT 4.58 10^6/uL (3.72-5.28); RED CELL DISTRIBUTION WIDTH 14.4 % (11.5-14.0); SEGMENTED NEUTROPHILS % (AUTO) 47.7 % (42-78); WHITE BLOOD COUNT 4.9 10^3/uL (4.0-10.5)
[2016-12-08 12:13] LABS: ALANINE AMINOTRANSFERASE 25 U/L (9-52); ALBUMIN 4.4 g/dL (3.5-5.0); ALKALINE PHOSPHATASE 82 U/L (38-126); ANION GAP 11 (5-19); ASPARTATE AMINO TRANSFERASE 17 U/L (14-36); BILIRUBIN,DIRECT 0.4 mg/dL (0.0-0.4); BILIRUBIN,TOTAL 0.6 mg/dL (0.2-1.3); BLOOD UREA NITROGEN 17 mg/dL (7-20); CALCIUM 9.8 mg/dL (8.4-10.2); CARBON DIOXIDE 27 mmol/L (22-30); CHLORIDE 104 mmol/L (98-107); CREATINE KINASE 77 U/L (30-135); GLUCOSE 92 mg/dL (75-110); LIPASE 90.2 U/L (23-300); POTASSIUM 4.7 mmol/L (3.6-5.0); SODIUM 142.1 mmol/L (137-145); TOTAL PROTEIN 7.5 g/dL (6.3-8.2)
--- NOTE | 2016-12-08 12:21 | RADIOLOGY REPORT (SQ) ---
EXAM DESCRIPTION: ACUTE ABDOMEN SERIES COMPLETED DATE/TIME: 12/08/2016 12:07 pm REASON FOR STUDY: CP/Abd pain COMPARISON: Chest films 10/04/2016, 10/06/2015 CT abdomen pelvis 03/08/2015 NUMBER OF VIEWS: Three views. TECHNIQUE: Frontal chest, supine abdomen and upright abdomen radiographic images acquired. LIMITATIONS: None. FINDINGS: CHEST: Lungs clear of infiltrates. Cardiac silhouette size, tian unremarkable. No pleura l effusion, pneumothorax. FREE AIR: None. No abnormal gas collections. BOWEL GAS PATTERN: Nonobstructive pattern. No dilated loops or air fluid levels. CALCIFICATIONS: No suspicious calcifications. HARDWARE: None in the abdomen. SOFT TISSUES: No gross mass or suggestion of organomegaly. BONES: No acute fracture. No worrisome bone lesions. OTHER: No other significant finding. IMPRESSION: NO RADIOGRAPHIC EVIDENCE FOR ACUTE ABDOMINAL DISEASE. TECHNICAL DOCUMENTATION: JOB ID: [id number] [email or web address]- All Rights Reserved
[2016-12-08 12:23] LABS: CREATINE KINASE MB 0.23 ng/mL (<4.55)
[2016-12-08 12:29] LABS: TROPONIN I < 0.012 ng/mL
[2016-12-08 13:41] VITALS: BP 150/95
== END 2016-12-08 13:41 | disposition home or self-care (01) ==
LOC: ER 09:02
DX: R10.13 Epigastric pain (principal); R11.0 Nausea; R68.83 Chills (without fever); I10 Essential (primary) hypertension; Z98.51 Tubal ligation status
CPT/HCPCS: 36415; 74022; 80053; 81001; 82550; 82553; 83690; 84484; 85025; 93005; 93010; 99284

== ENCOUNTER 2017-06-05 17:59 | Observation (INO) | payer SELFPAY ==
--- NOTE | 2017-06-05 18:53 | EKG REPORT ---
SEVERITY:- BORDERLINE ECG - SINUS RHYTHM LEFT AXIS DEVIATION BORDERLINE T ABNORMALITIES, ANTERIOR LEADS, NEW SINCE 12/08/16., CLINICAL CORRELATION NEEDED. : Confirmed by: Jose C Gaines MD 05-Jun-2017 18:52:49
[2017-06-05] MEDS ORDERED: ASPIRIN 81 MG TABLET, CHEWABLE PO ONE (20:27)
--- NOTE | 2017-06-05 20:30 | ER Document Report ---
ED Cardiac - General Chief Complaint: Chest Pain Stated Complaint: BREATHING DIFFICULTY,CHEST PAIN Time Seen by Provider: 06/05/17 20:17 Notes: Patient is a 46-year-old female that comes emergency department for chief complaint of chest pain and shortness of breath. She states she has had symptoms intermittently since yesterday, she states she also had a worse episode where she broke out into a sweat, had a squeezing sensation in her chest , and felt out of breath. She has had milder symptoms since then including today. She denies current chest pain. She also reports random symptoms including tingling in her extremities, dry skin, dry mouth. She denies focal numbness or weakness. She denies nausea or vomiting, fever or chills, she had a resolved cough recently. She has hypertension, does not smoke, reports that both her father and mother had NV and heart disease. She has not had a menstrual cycle in months, has had a tubal ligation. TRAVEL OUTSIDE OF THE [place] IN LAST 30 DAYS: No - Related Data Allergies/Adverse Reactions: No Known Allergies Allergy (Verified 12/08/16 09:18) Past Medical History - General Information source: Patient - Social History Smoking Status: Never Smoker Frequency of alcohol use: None Drug Abuse: None Lives with: Family Family History: Reviewed & Not Pertinent - Past Medical History Cardiac Medical History: Reports: Hx Hypertension Neurological Medical History: Reports: Hx Migraine Renal/ Medical History: Denies: Hx Peritoneal Dialysis Past Surgical History: Reports: Hx Tubal Ligation, Other - lazer eye surgery - Immunizations Hx Diphtheria, Pertussis, Tetanus Vaccination: Yes Review of Systems - Review of Systems Constitutional: No symptoms reported EENT: No symptoms reported Cardiovascular: See HPI Respiratory: See HPI Gastrointestinal: No symptoms reported Genitourinary: No symptoms reported Female Genitourinary: No symptoms reported Musculoskeletal: No symptoms reported Skin: No symptoms reported Hematologic/Lymphatic: No symptoms reported Neurological/Psychological: No symptoms reported Physical Exam - Vital signs Vitals: Temp Pulse Resp BP Pulse Ox 98.1 F 71 17 154/93 H 100 06/05/17 18:16 06/05/17 18:16 06/05/17 18:16 06/05/17 18:16 06/05/17 18:16 Interpretation: Normal - General General appearance: Appears well In distress: None - HEENT Head: Normocephalic, Atraumatic Eyes: Normal Pupils: PERRL - Respiratory Respiratory status: No respiratory distress Chest status: Nontender Breath sounds: Normal. No: Decreased air movement, Wheezing Chest palpation: Normal - Cardiovascular Rhythm: Regular Heart sounds: Normal auscultation Murmur: No - Abdominal Inspection: Normal Distension: No distension Bowel sounds: Normal Tenderness: Nontender Organomegaly: No organomegaly - Back Back: Normal, Nontender - Extremities General upper extremity: Normal inspection, Nontender, Normal color, Normal ROM , Normal temperature General lower extremity: Normal inspection, Nontender, Normal color, Normal ROM , Normal temperature, Normal weight bearing. No: Tanvir's sign - Neurological Neuro grossly intact: Yes Cognition: Normal Orientation: AAOx4 Braxton Coma Scale Eye Opening: Spontaneous Braxton Coma Scale Verbal: Oriented Braxton Coma Scale Motor: Obeys Commands [place] Coma Scale Total: 15 Speech: Normal Motor strength normal: LUE, RUE, LLE, RLE Sensory: Normal - Psychological Associated symptoms: Normal affect, Normal mood - Skin Skin Temperature: Warm Skin Moisture: Dry Skin Color: Normal Course - Re-evaluation Re-evalutation: EKG shows sinus rhythm, there are T-wave inversions anteriorly consecutive leads , these are not deep T waves but they are borderline. No ST segment changes noted. Normal axis. Chest x-ray unremarkable. CBC, chemistry generally unremarkable. test is positive, patient has not had a menstrual cycle in months, she has had a tubal ligation, hCG quant was tested, hCG is barely positive. Suspect false positive. This was discussed with patient, will need to be trended. Troponin is negative. Concern because of patient's description of pain ( tightness in the chest with associated diaphoresis which resolved), she has hypertension, she states her mom had an NV around patient's age, and patient has EKG changes. PERC negative. Heart score is 4. Discussed with Dr. Rios. Discussed with patient, will discuss with hospitalist for telemetry observation. Discussed with Dr. Butt, patient will be admitted to telemetry observation. - Vital Signs Vital signs: Temp Pulse Resp BP Pulse Ox 98.0 F 71 18 157/91 H 100 06/06/17 00:00 06/05/17 18:16 06/06/17 00:00 06/06/17 00:00 06/06/17 00:00 - Laboratory Result Diagrams: 06/05/17 20:55 06/05/17 20:55 Laboratory results interpreted by me: 06/05/17 06/05/17 06/05/17 20:55 20:55 20:55 RDW 14.9 H Glucose 114 H Serum HCG, Qual POSITIVE H Beta HCG, Quant 06/05/17 20:55 RDW Glucose Serum HCG, Qual Beta HCG, Quant 6.79 H Discharge - Discharge Clinical Impression: Chest pain Qualifiers: Chest pain type: unspecified Qualified Code(s): R07.9 - Chest pain, unspecified Condition: Stable Disposition: ADMITTED OBSERVATION Admitting Provider: Hospitalist Unit Admitted: Telemetry
--- NOTE | 2017-06-05 20:52 | RADIOLOGY REPORT (SQ) ---
EXAM DESCRIPTION: CHEST SINGLE VIEW COMPLETED DATE/TIME: 06/05/2017 8:42 pm REASON FOR STUDY: chest pain, shortness of breath COMPARISON: 10/04/2016 EXAM PARAMETERS: NUMBER OF VIEWS: One view. TECHNIQUE: Single frontal radiographic view of the chest acquired. RADIATION DOSE: NA LIMITATIONS: None. FINDINGS: LUNGS AND PLEURA: No opacities, masses or pneumothorax. No pleural effusion. MEDIASTINUM AND HILAR STRUCTURES: No masses. Contour normal. HEART AND VASCULAR STRUCTURES: Heart normal in size. Normal vasculature. BONES: No acute findings. HARDWARE: None in the chest. OTHER: No other significant finding. IMPRESSION: NO ACUTE RADIOGRAPHIC FINDING IN THE CHEST. TECHNICAL DOCUMENTATION: JOB ID: [id number] [email or web address]- All Rights Reserved Reading location - IP/workstation name: [email or web address]
[2017-06-05 21:11] LABS: ABSOLUTE BASOPHILS # (AUTO) 0.1 10^3/uL (0.0-0.2); ABSOLUTE EOSINOPHILS # (AUTO) 0.3 10^3/uL (0.0-0.6); ABSOLUTE LYMPHOCYTES (AUTO) 2.6 10^3/uL (0.5-4.7); ABSOLUTE MONOCYTES (AUTO) 0.6 10^3/uL (0.1-1.4); ABSOLUTE NEUT (AUTO) 3.3 10^3/uL (1.7-8.2); BASOPHILS % (AUTO) 1.3 % (0-2); HEMATOCRIT 38.1 % (36.0-47.0); HEMOGLOBIN 12.8 g/dL (12.0-15.5); LYMPHOCYTES % (AUTO) 38.1 % (13-45); MEAN CORPUSCULAR HGB CONC 33.5 g/dL (32.0-36.0); MEAN CORPUSCULAR VOLUME 84 fl (80-97); MONOCYTES % (AUTO) 8.3 % (3-13); PLATELET COUNT 233 10^3/uL (150-450); RED BLOOD COUNT 4.55 10^6/uL (3.72-5.28); RED CELL DISTRIBUTION WIDTH 14.9 % (11.5-14.0); SEGMENTED NEUTROPHILS % (AUTO) 47.3 % (42-78); TOTAL CELLS COUNTED % (AUTO) 100 %; WHITE BLOOD COUNT 6.9 10^3/uL (4.0-10.5)
[2017-06-05 21:32] LABS: ALANINE AMINOTRANSFERASE 33 U/L (9-52); ALBUMIN 4.4 g/dL (3.5-5.0); ALKALINE PHOSPHATASE 72 U/L (38-126); ANION GAP 11 (5-19); ASPARTATE AMINO TRANSFERASE 19 U/L (14-36); BILIRUBIN,DIRECT 0.1 mg/dL (0.0-0.4); BILIRUBIN,TOTAL 0.2 mg/dL (0.2-1.3); BLOOD UREA NITROGEN 12 mg/dL (7-20); CALCIUM 9.6 mg/dL (8.4-10.2); CARBON DIOXIDE 27 mmol/L (22-30); CHLORIDE 102 mmol/L (98-107); CREATINE KINASE 61 U/L (30-135); GLUCOSE 114 mg/dL (75-110); SODIUM 140.4 mmol/L (137-145)
[2017-06-05 21:46] LABS: CREATINE KINASE MB < 0.22 ng/mL (<4.55); TROPONIN I < 0.012 ng/mL
[2017-06-06] MEDS ORDERED: PROMETHAZINE HCL INJ 25 MG/1 ML VIAL IV PRN (00:15)
[2017-06-06] MEDS ORDERED: ACETAMINOPHEN 325 MG TABLET PO PRN (00:15)
[2017-06-06] MEDS ORDERED: ALBUTEROL SULFATE 0.083% NEB 2.5 MG/3 ML AMPUL NEB PRN (00:15)
--- NOTE | 2017-06-06 05:03 | PDOC H&P ---
History of Present Illness Admission Date/PCP: DOUG ROSARIO MD Patient complains of: Intermittent chest pain since yesterday. History of Present Illness: ANAIS AVILEZ is a 46 year old female history of hypertension was admitted with above-mentioned complaint. She said that she has been having intermittent chest pain since yesterday which she describes as squeezing and lasting about half an hour. And at 2 PM today, she had similar pain while at rest which lasted more than half an hour, no active alleviating or aggravating factors. It was associated with shortness of breath, nausea and palpitations. She also felt hot and clammy and had some squeezing pain in both arms but she denied any fever , chills or cough. She said that she had similar chest pain in the distant past but at that time her blood pressure was uncontrolled. She denied any heartburns having eating any spicy/acidic food recently. In the ED her temperature was 98.1, heart rate 71, respiratory rate 17, blood pressure 154/93 with oxygen saturation of 100% on room air. Her WBC was 6.9 and her hemoglobin was 12.8. Her initial troponin was negative. D-dimer pending. Chest x-ray was done which was negative. She received 325 mg ASA 1. Past Medical History Medical History: Other - According to the patient and based on previous records. Cardiac Medical History: Reports: Hypertension Neurological Medical History: Reports: Migraine Past Surgical History Past Surgical History: Reports: Tubal Ligation, Other - Right lazer eye surgery Social History Smoking Status: Never Smoker Frequency of Alcohol Use: Rare Hx Recreational Drug Use: No Family History Parental Family History Reviewed: Yes - Mother: CAD/IN, father CHF/CVA. Children Family History Reviewed: No Sibling(s) Family History Reviewed.: Yes Medication/Allergy Home Medications: Lisinopril 5 mg PO DAILY #30 tablet 10/05/16 Allergies/Adverse Reactions: No Known Allergies Allergy (Verified 12/08/16 09:18) Review of Systems ROS unobtainable: Other - Pertinent positives and negatives as detailed in the HPI. The patient denied any abdominal pain, diarrhea or constipation or any urinary symptoms. She has leg weakness but no focal deficit. Physical Exam Vital Signs: Temp Pulse Resp BP Pulse Ox 98.0 F 71 18 157/91 H 100 06/06/17 00:00 06/05/17 18:16 06/06/17 00:00 06/06/17 00:00 06/06/17 00:00 Intake & Output 06/04/17 06/05/17 06/06/17 06:59 06:59 06:59 Weight 119 kg General appearance: PRESENT: no acute distress, morbidly obese, well-developed Eye exam: PRESENT: conjunctiva pink, PERRLA. ABSENT: scleral icterus Mouth exam: PRESENT: moist, neck supple Neck exam: PRESENT: full ROM. ABSENT: JVD Respiratory exam: PRESENT: clear to auscultation kristine. ABSENT: rales, rhonchi, wheezes Cardiovascular exam: PRESENT: RRR, +S1, +S2 Pulses: PRESENT: normal dorsalis pedis pul GI/Abdominal exam: PRESENT: normal bowel sounds, soft. ABSENT: distended, rebound, tenderness Rectal exam: PRESENT: deferred Neurological exam: PRESENT: alert, altered, awake, motor sensory deficit - grossly normal. she complains of burning sensation next to her right knee. Skin exam: PRESENT: dry, warm. ABSENT: erythema, rash Results Laboratory Results: 06/05/17 20:55 06/05/17 20:55 06/05/17 06/05/17 06/05/17 20:55 20:55 20:55 WBC 6.9 RBC 4.55 Hgb 12.8 Hct 38.1 MCV 84 MCH 28.0 MCHC 33.5 RDW 14.9 H Plt Count 233 Seg Neutrophils % 47.3 Lymphocytes % 38.1 Monocytes % 8.3 Eosinophils % 5.0 Basophils % 1.3 Absolute Neutrophils 3.3 Absolute Lymphocytes 2.6 Absolute Monocytes 0.6 Absolute Eosinophils 0.3 Absolute Basophils 0.1 Sodium 140.4 Potassium 4.0 Chloride 102 Carbon Dioxide 27 Anion Gap 11 BUN 12 Creatinine 0.89 Est GFR ( Amer) > 60 Est GFR (Non-Af Amer) > 60 Glucose 114 H Calcium 9.6 Total Bilirubin 0.2 AST 19 ALT 33 Alkaline Phosphatase 72 Total Protein 7.0 Albumin 4.4 Serum HCG, Qual POSITIVE H 06/05/17 06/05/17 06/05/17 20:55 20:55 23:34 Creatine Kinase 61 CK-MB (CK-2) < 0.22 Troponin I < 0.012 < 0.012 EKG Comments: Twelve-lead EKG: Initial rhythm, ventricular rate 75, axis -40, T-wave inversion in leads V2 through V3 no other acute changes. Similar when compared to previous 12-lead EKG done on 12/08/2016. Impressions: Chest X-Ray 06/05/17 20:27 IMPRESSION: NO ACUTE RADIOGRAPHIC FINDING IN THE CHEST. Assessment & Plan - Diagnosis (1) Chest pain Qualifiers: Chest pain type: unspecified Qualified Code(s): R07.9 - Chest pain, unspecified Is this a current diagnosis for this admission?: Yes Plan: questionable cardiac. D-dimer pending. Will continue to cycle cardiac enzymes and check FLP and echocardiogram in a.m. If positive d-dimer, will check CAT scan angiogram of the chest; otherwise, she is scheduled for a nuclear stress test if troponins x2 sets are negative. (2) Essential hypertension Is this a current diagnosis for this admission?: No Plan: Will resume lisinopril and monitor her blood pressure. (3) Elevated serum hCG Is this a current diagnosis for this admission?: Yes Plan: Borderline elevated. The patient is post tubal ligation. Will repeat serum beta HCG. - Time Time Spent: 50 to 70 Minutes Anticipated discharge: Home
[2017-06-06] MEDS: HEPARIN SOD (PORCINE) 5,000 UNIT/ML 1 ML SYRINGE SUBCUT SCH ×3 (08:11→22:02)
[2017-06-06] MEDS: LISINOPRIL 5 MG TABLET PO SCH (09:43)
[2017-06-07] MEDS: HEPARIN SOD (PORCINE) 5,000 UNIT/ML 1 ML SYRINGE SUBCUT SCH ×2 (05:32→14:21)
[2017-06-07 06:03] LABS: CHOLESTEROL 214.94 mg/dL (0-200); TRIGLYCERIDES 75 mg/dL (<150)
[2017-06-07 06:14] LABS: DIRECT LDL 134 mg/dL (<100)
--- NOTE | 2017-06-07 08:24 | RADIOLOGY REPORT (SQ) ---
EXAM DESCRIPTION: U/S ABDOMEN COMPLETE W/O DOP COMPLETED DATE/TIME: 06/07/2017 3:31 am REASON FOR STUDY: abdominal pain COMPARISON: None. TECHNIQUE: Dynamic and static grayscale images acquired of the abdomen and recorded on PACS. Additio nal selected color Doppler and spectral images recorded. LIMITATIONS: Study is limited due to the patient's body habitus and overlying bowel gas P FINDINGS: PANCREAS: The pancreas was incompletely visualized due to overlying bowel gas. The visual ized portions of the pancreatic head showed no pancreatic masses. LIVER: There is increased echogenicity in the liver consistent with fatty infiltration. No focal mas ses are identified. No dilated bile ducts are identified. LIVER VASCULATURE: Normal directional flow of the main portal vein. GALLBLADDER: No stones. Normal wall thickness. No pericholecystic fluid. ULTRASOUND-DETECTED MCGEE'S SIGN: Negative. INTRAHEPATIC DUCTS AND COMMON DUCT: CBD and intrahepatic ducts normal caliber. No filling defects. INFERIOR VENA CAVA: Normal flow. AORTA: No aneurysm RIGHT KIDNEY: 9.5 cm in length. Normal echogenicity. No solid or suspicious masses. No hydrone phrosis. No calcifications. LEFT KIDNEY: 9 cm in length. Normal echogenicity. No solid or suspicious masses. No hydronephr osis. No calcifications. SPLEEN: Normal size. No solid masses. PERITONEAL AND PLEURAL SPACES: No ascites or effusions. OTHER: No other significant finding. IMPRESSION: Somewhat limited study as noted above. Fatty infiltration of the liver. No other signi ficant intra-abdominal abnormalities were identified TECHNICAL DOCUMENTATION: JOB ID: [id number] [employer]- All Rights Reserved Reading location - IP/workstation name: [email or web address]
--- NOTE | 2017-06-07 08:44 | PDOC PROGRESS REPORT ---
Subjective Progress Note for:: 06/06/17 Subjective:: The patient is resting in her bed. She did not have her stress test today due to concerns over her mildly elevated hCG. I spoke to HOG TENDER on the phone and they are not concerned at these levels that she is actually . They said that it is fine for her to have a stress test. Her repeat hCG was negative. Today she states she still has some chest tightness at times. Is located centrally in the chest. She does have some radiation to her left shoulder. Her serial troponins have been negative. She denies fever chills. No heart palpitations. No nausea vomiting or diarrhea. No urinary complaints. Reason For Visit: CHEST PAIN Physical Exam Vital Signs: Temp Pulse Resp BP Pulse Ox 97.4 F 67 16 126/81 H 100 06/07/17 07:42 06/07/17 07:42 06/07/17 07:42 06/07/17 07:42 06/07/17 07:42 Intake & Output 06/06/17 06/07/17 06/08/17 06:59 06:59 06:59 Intake Total 1419 Output Total 0 Balance 1419 Weight 117.7 kg General appearance: PRESENT: no acute distress, well-developed, well-nourished Head exam: PRESENT: atraumatic, normocephalic Mouth exam: PRESENT: moist, tongue midline Respiratory exam: PRESENT: clear to auscultation kristine. ABSENT: rales, rhonchi, wheezes Cardiovascular exam: PRESENT: RRR. ABSENT: diastolic murmur, rubs, systolic murmur GI/Abdominal exam: PRESENT: normal bowel sounds, soft. ABSENT: distended, guarding, mass, organolmegaly, rebound, tenderness Rectal exam: PRESENT: deferred Extremities exam: PRESENT: full ROM. ABSENT: calf tenderness, clubbing, pedal edema Musculoskeletal exam: PRESENT: ambulatory Neurological exam: PRESENT: alert, awake, oriented to person, oriented to place , oriented to time, oriented to situation, CN II-XII grossly intact. ABSENT: motor sensory deficit Psychiatric exam: PRESENT: appropriate affect, normal mood. ABSENT: homicidal ideation, suicidal ideation Skin exam: PRESENT: dry, intact, warm. ABSENT: cyanosis, rash Results Laboratory Results: 06/07/17 04:50 Triglycerides 75 Cholesterol 214.94 H LDL Cholesterol Direct 134 H VLDL Cholesterol 15.0 HDL Cholesterol 57 06/06/17 06/06/17 06/06/17 06:20 13:05 18:00 Troponin I < 0.012 < 0.012 < 0.012 Impressions: Chest X-Ray 06/05/17 20:27 IMPRESSION: NO ACUTE RADIOGRAPHIC FINDING IN THE CHEST. Abdomen Ultrasound 06/07/17 00:00 IMPRESSION: Somewhat limited study as noted above. Fatty infiltration of the liver. No other significant intra-abdominal abnormalities were identified Assessment & Plan - Diagnosis (1) Chest pain Qualifiers: Chest pain type: unspecified Qualified Code(s): R07.9 - Chest pain, unspecified Is this a current diagnosis for this admission?: Yes Plan: I have spoken to HOG TENDER and they believe it is safe for her to have stress testing. This will be done in the morning. She continues to have some mild chest discomfort. Perhaps this is GI in nature. I will obtain an abdominal ultrasound for further evaluation. (2) Hyperlipidemia Is this a current diagnosis for this admission?: Yes Plan: She will be started on simvastatin (3) Essential hypertension Is this a current diagnosis for this admission?: Yes Plan: Continue 5 mg of lisinopril. Blood pressure is adequately controlled today (4) Elevated serum hCG Is this a current diagnosis for this admission?: Yes Plan: Repeat test is normal but on the high side. I spoke to HOG TENDER and they are not concerned regarding these numbers. They state that some people can secrete low levels of hormones. They are not worried about an underlying malignancy as the levels would be much higher as well as (5) Morbid obesity with BMI of 40.0-44.9, adult Is this a current diagnosis for this admission?: Yes Plan: Dietary discretion is advised - Time Time Spent with patient: 25-34 minutes - Inpatient Certification Medical Necessity: Other - Inpatient hospitalization remains necessary. The patient will remain in observation in the hospital and have her stress test performed tomorrow. Hopefully she can be discharged home tomorrow afternoon
[2017-06-07] MEDS ORDERED: SIMVASTATIN 40 MG TABLET PO SCH (09:00)
[2017-06-07] MEDS: LISINOPRIL 5 MG TABLET PO SCH (14:20)
--- NOTE | 2017-06-07 14:22 | DRAGON STRESS TEST REPORT ---
INTRAVENOUS LEXISCAN CARDIOLITE STRESS TEST USING SINGLE PHOTON EMMISION COMPUTERIZED TOMOGRAPHIC. DATE OF PROCEDURE: June 07, 2017, INDICATION : Chest pain CARDIAC RISK FACTORS: Hypertension RESTING EKG: Sinus rhythm without any baseline ST-T wave changes STRESS EKG: No significant changes noted with LexiScan bolus REASON FOR TERMINATION: Protocol. PROCEDURE REPORT: Baseline heart rate 75 beats per minute with blood pressure of 115/87. Patient had no significant complaints. Heart rate at 2 minutes post bolus 105 with a blood pressure of 111/71. 3 minutes post bolus heart rate 93 with blood pressure of 112/75. No significant EKG changes were noted. Patient had no significant complaints during the procedure or postprocedure. Patient injected with Aminophyllin 75 mg at 3 minutes or later after Lexiscan bolus. CONCLUSIONS: Normal EKG and hemodynamic response to IV LexiScan. NUCLEAR DATA: At rest the patient was given 15.30 millicuries of technetium 99 sestamibi injected intravenously. As per protocol rest gated SPECT images were obtained. On day of stress test, the patient was given intravenous LexiScan at a dose of 0.4 mg in 5 mL intravenously, followed by flush with normal saline. Subsequently the stress dose of 45.2 millicuries of technetium 99 sestamibi was injected intravenously. As per protocol stress gated images were obtained. NUCLEAR INTERPRETATION: Both raw and processed data were used for interpretation. Visual, qualitative, computer-generated quantitative data was used. There was good myocardial uptake of technetium compound. Motion artifact and soft tissue attenuations were noted. Increased visceral uptake was noted. Significant breast attenuation artifact was noted. No definitive areas of transient perfusion defect noted, No definitive areas of fixed perfusion defect or scars noted. EKG gated imaging showed LV EF at 45 %, rest and stress gated EF similar visually. T. I D. ratio was 1.16. Lung heart ratio noted to be within normal limits 0.31. No significant extracardiac and abnormal radiotracer activities were noted. RV free wall uptake was noted to be WNL. IMPRESSION: Also refer to comments under nuclear interpretation. Also test results needs to be interpreted in the context of pretest probability. 1. No definitive areas of transient perfusion defect noted. 2. There is no definitive scintigraphic evidence of myocardial infarction/scar. 3. EKG gated imaging shows left ventricular ejection fraction of approx. 45 %. 4. Clinical correlation requested as occasionally single vessel disease or balanced ischemia could be missed. In approximately 10% of the cases Lexiscan may not cause adequate vasodilatory stress. RECOMMENDATIONS: Aggressive risk factor modification and medical management. Further evaluation may be needed if continued symptoms or other high risk indicators are noted on clinical evaluation. Close cardiology follow-up is also recommended. Clinical correlation with echocardiogram derived ejection fraction. Inability to exercise by itself can lead to increased cardiovascular event risks. Consider cardiology consultation and or follow-up if clinically indicated. I am available for cardiology evaluation and consultation if requested by the revival clerk, unless patient already has a terminal operations supervisor. DANDRE
--- NOTE | 2017-06-07 14:35 | XCELERA REPORT ---
[address] [address] Transthoracic Echocardiogram Report Name: ANAIS AVILEZ Age: 46 yrs Gender: Female : 1970 Patient Status: Inpatient Patient Location: [address] [place] [address] Study Date: 06/07/2017 09:52 AM Height: 67 in Weight: 262 lb BSA: 2.3 m2 Procedure: A complete two-dimensional transthoracic echocardiogram was performed (2D, M-mode, spectral and color flow Doppler). The study was technically difficult with many images being suboptimal in quality. Reason For Study: chest pain Ordering Physician: OJHNNY SILVEIRA Performed By: Roberta Dean Interpretation Summary The study was technically difficult with many images being suboptimal in quality. The left ventricular ejection fraction is within normal limits. There is mild concentric left ventricular hypertrophy. The left ventricle is grossly normal size. LV diastolic function could not be adequately assessed. Wall motion cannot be accurately commented on, but no definite regional wall motion abnormalities noted. The right ventricle is not well visualized secondary to technical limitations Right ventricular function cannot be assessed due to poor image quality. The right atrium is mildly dilated. The left atrial size is normal. There is no mitral valve stenosis. There is no mitral regurgitation noted. There is no aortic valve stenosis No aortic regurgitation is present. There is a trace or physiologic amount of tricuspid regurgitation Tricuspid regurgitation jet envelope not well defined to measure RV systolic pressure accurately. The aortic root is not well visualized but is probably normal size. The inferior vena cava was not well visualized There is no pericardial effusion. MMode/2D Measurements & Calculations RVDd: 1.8 cm LVIDd: 3.8 cm FS: 35.6 % Ao root diam: 2.6 cm IVSd: 1.1 cm LVIDs: 2.4 cm EDV(Teich): 60.3 ml LVPWd: 1.1 cm ESV(Teich): 20.6 ml Ao root area: 5.3 cm2 EF(Teich): 65.8 % LVOT diam: 2.0 cm LVOT area: 3.0 cm2 Doppler Measurements & Calculations MV E max magda: MV dec slope: Ao V2 max: LV V1 max P.2 cm/sec 375.6 cm/sec2 125.1 cm/sec 3.3 mmHg MV A max magda: MV dec time: Ao max PG: LV V1 max: 77.3 cm/sec 0.18 sec 6.3 mmHg 91.3 cm/sec MV E/A: 0.89 KALIE(V,D): 2.2 cm2 PA V2 max: PI end-d magda: TR max magda: 76.6 cm/sec 75.8 cm/sec 201.9 cm/sec PA max PG: TR max P.3 mmHg 16.3 mmHg Left Ventricle The left ventricle is grossly normal size. There is mild concentric left ventricular hypertrophy. The left ventricular ejection fraction is within normal limits. LV diastolic function could not be adequately assessed. Wall motion cannot be accurately commented on, but no definite regional wall motion abnormalities noted. Right Ventricle The right ventricle is not well visualized secondary to technical limitations. Right ventricular function cannot be assessed due to poor image quality. Atria The right atrium is mildly dilated. The left atrial size is normal. Interarterial septum not well visualized and not well dopplered. Cannot comment on ASD/PFO presence. Mitral Valve The mitral valve is grossly normal. There is no mitral valve stenosis. There is no mitral regurgitation noted. Aortic Valve The aortic valve is grossly normal. There is no aortic valve stenosis. No aortic regurgitation is present. Tricuspid Valve The tricuspid valve is not well visualized secondary to technical limitations. There is no tricuspid stenosis. There is a trace or physiologic amount of tricuspid regurgitation. Tricuspid regurgitation jet envelope not well defined to measure RV systolic pressure accurately. Pulmonic Valve The pulmonic valve is not well visualized. Great Vessels The aortic root is not well visualized but is probably normal size. The inferior vena cava was not well visualized. Effusions There is no pericardial effusion. : JOHNNY SILVEIRA > Samy Torres
[2017-06-07] MEDS ORDERED: AMINOPHYLLINE INJ/PF 250 MG/10 ML SDV IV ONE (14:46)
[2017-06-07] MEDS ORDERED: REGADENOSON INJ 0.4 MG/5 ML DISP.SYRIN IV ONE (14:46)
[2017-06-07 15:28] VITALS: BP 138/76
--- NOTE | 2017-06-07 18:33 | PDOC DISCHARGE SUMMARY ---
General - Admit/Disc Date/PCP Admission Date/Primary Care Provider: 06/05/17 23:43 DOUG ROSARIO MD Discharge Date: 06/07/17 - Discharge Diagnosis (1) Chest pain Is this a current diagnosis for this admission?: Yes Summary: Likely due to stress and anxiety although I cannot rule out a GI source for chest pain. Her cardiac stress test was totally normal as was her echocardiogram. (2) Hyperlipidemia Is this a current diagnosis for this admission?: Yes Summary: She has been started on a low-dose statin medication at discharge (3) Essential hypertension Is this a current diagnosis for this admission?: Yes Summary: Continue low-dose lisinopril. Her blood pressure has been adequately controlled during this hospitalization. She does state that she develops very high blood pressure when she gets very stressed. We have discussed relaxation techniques and I have recommended diet and exercise. (4) Elevated serum hCG Is this a current diagnosis for this admission?: Yes Summary: I spoke to an [employer] SUPERVISOR. Her initial serum hCG was borderline positive. It was repeated and it was negative but on the high side of normal. The patient has had a tubal ligation. She is not having periods at this point. It is highly unlikely that she is . [employer] SUPERVISOR does not believe that any further workup is necessary. Her numbers are too low to be or have issues with malignancy. (5) Morbid obesity with BMI of 40.0-44.9, adult Is this a current diagnosis for this admission?: Yes Summary: We discussed diet strategies. Certainly she would benefit from weight loss. - Additional Information Discharge Diet: Regular Discharge Activity: Activity As Tolerated, Balance Activity w/Rest, Slowly Increase Activity Prescriptions: Simvastatin [Zocor 40 mg Tablet] 40 mg PO QHS #30 tablet Omeprazole 40 mg PO DAILY #30 capsule. Home Medications: Lisinopril 5 mg PO DAILY #30 tablet 10/05/16 Omeprazole 40 mg PO DAILY #30 capsule. 06/07/17 Simvastatin [Zocor 40 mg Tablet] 40 mg PO QHS #30 tablet 06/07/17 History of Present Illness History of Present Illness: ANAIS AVILEZ is a 46 year old female Hospital Course Hospital Course: The patient is an extremely pleasant 46-year-old morbidly obese - [place] female. In the past she followed with Dr. Lyndon Rosario but she has not seen him in quite some time. Her past medical history significant for hypertension. She is under tremendous amount of stress at home with her schizophrenic son that she is trying to manage. Patient presented to the emergency room with chest tightness and pressure that radiated up into the left arm. She was placed in observation in the hospital and initially a stress test was ordered. Her initial test popped up borderline positive. A repeat test was negative but on the high side. [employer] SUPERVISOR was consulted and did not believe the patient was . Her stress test got postponed for a day as we worked this out. This morning she underwent a Cardiolite stress test and had an echocardiogram performed. Her stress test revealed no evidence of reversible ischemia. She had normal left ventricular function. Her echocardiogram was unremarkable. The patient did have an abdominal ultrasound performed which revealed evidence of fatty liver infiltration but otherwise was unremarkable. I have recommended that the patient get back to her primary care physician. We discussed diet and exercise strategies. I believe she may have some gastrointestinal chest pain related to GERD and she has been started on low -dose omeprazole. Also I believe she is under tremendous amount of stress and may benefit from a depression medicine. I will leave that up to her primary care provider. At this point maximum hospital benefits been reached. She will be discharged home today in stable condition. Physical Exam Vital Signs: Temp Pulse Resp BP Pulse Ox 98.3 F 67 18 138/76 H 99 06/07/17 17:55 06/07/17 17:55 06/07/17 17:55 06/07/17 17:55 06/07/17 17:55 Intake & Output 06/06/17 06/07/17 06/08/17 06:59 06:59 06:59 Intake Total 1419 1000 Output Total 0 Balance 1419 1000 Weight 117.7 kg 117.7 kg General appearance: PRESENT: no acute distress, morbidly obese, well-developed, well-nourished Head exam: PRESENT: atraumatic, normocephalic Eye exam: PRESENT: conjunctiva pink, EOMI, PERRLA. ABSENT: scleral icterus Ear exam: PRESENT: normal external ear exam Mouth exam: PRESENT: moist, tongue midline Respiratory exam: PRESENT: clear to auscultation kristine. ABSENT: rales, rhonchi, wheezes Cardiovascular exam: PRESENT: RRR. ABSENT: diastolic murmur, rubs, systolic murmur Pulses: PRESENT: normal dorsalis pedis pul Vascular exam: PRESENT: normal capillary refill GI/Abdominal exam: PRESENT: normal bowel sounds, soft. ABSENT: distended, guarding, mass, organolmegaly, rebound, tenderness Rectal exam: PRESENT: deferred Extremities exam: PRESENT: full ROM. ABSENT: calf tenderness, clubbing, pedal edema Musculoskeletal exam: PRESENT: ambulatory, full ROM Neurological exam: PRESENT: alert, awake, oriented to person, oriented to place , oriented to time, oriented to situation, CN II-XII grossly intact. ABSENT: motor sensory deficit Psychiatric exam: PRESENT: appropriate affect, normal mood. ABSENT: homicidal ideation, suicidal ideation Skin exam: PRESENT: dry, intact, warm. ABSENT: cyanosis, rash Results Laboratory Results: 06/07/17 04:50 Triglycerides 75 Cholesterol 214.94 H LDL Cholesterol Direct 134 H VLDL Cholesterol 15.0 HDL Cholesterol 57 06/06/17 06/06/17 06/06/17 06:20 13:05 18:00 Troponin I < 0.012 < 0.012 < 0.012 Impressions: Chest X-Ray 06/05/17 20:27 IMPRESSION: NO ACUTE RADIOGRAPHIC FINDING IN THE CHEST. Abdomen Ultrasound 06/07/17 00:00 IMPRESSION: Somewhat limited study as noted above. Fatty infiltration of the liver. No other significant intra-abdominal abnormalities were identified Qualifiers - * [facility]INT BEING DISCHARGED WITH ANY OF THE FOLLOWING DIAGNOSIS?: No Plan Time Spent: Greater than 30 Minutes
== END 2017-06-07 18:10 | disposition home or self-care (01) ==
LOC: ER 17:59 → EH 23:43 → 4W 06-06 01:00
PROVIDERS: ADMIT Internal Medicine Geriatric Medicine; ATTEND Internal Medicine Geriatric Medicine
DX: R07.89 Other chest pain (principal); E78.5 Hyperlipidemia, unspecified; I10 Essential (primary) hypertension; Z32.01 Encounter for pregnancy test, result positive; E66.01 Morbid (severe) obesity due to excess calories; K76.0 Fatty (change of) liver, not elsewhere classified; R23.1 Pallor; R53.1 Weakness; R20.2 Paresthesia of skin; R68.2 Dry mouth, unspecified; R61 Generalized hyperhidrosis; Z68.41 Body mass index [BMI] 40.0-44.9, adult; Z98.51 Tubal ligation status; Z82.49 Family history of ischemic heart disease and other diseases of the circulatory system; Z82.3 Family history of stroke; Z79.899 Other long term (current) drug therapy
CPT/HCPCS: 93005; 99285; 36415 ×3; 82553; 82550; 84702 ×2; 84703; 85025; 80053; 84484 ×2; 85379; 80061; 93306; 93017; 71045; 76700; 78452; 93010; 94640; G0378 ×3; A9500; J2785; J1644 ×2; J3490 ×2; J0280; Q9969

== ENCOUNTER 2018-05-27 09:33 | Emergency (ER) | payer SELFPAY ==
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
[2018-05-27 11:06] LABS: ABSOLUTE EOSINOPHILS # (AUTO) 0.3 10^3/uL (0.0-0.6); ABSOLUTE MONOCYTES (AUTO) 0.4 10^3/uL (0.1-1.4); ABSOLUTE NEUT (AUTO) 2.7 10^3/uL (1.7-8.2); BASOPHILS % (AUTO) 0.5 % (0-2); HEMATOCRIT 41.7 % (36.0-47.0); HEMOGLOBIN 13.9 g/dL (12.0-15.5); LYMPHOCYTES % (AUTO) 37.9 % (13-45); MEAN CORPUSCULAR HEMOGLOBIN 28.9 pg (27.0-33.4); MEAN CORPUSCULAR HGB CONC 33.4 g/dL (32.0-36.0); MEAN CORPUSCULAR VOLUME 87 fl (80-97); MONOCYTES % (AUTO) 6.8 % (3-13); PLATELET COUNT 259 10^3/uL (150-450); RED BLOOD COUNT 4.81 10^6/uL (3.72-5.28); RED CELL DISTRIBUTION WIDTH 14.6 % (11.5-14.0); SEGMENTED NEUTROPHILS % (AUTO) 49.8 % (42-78); TOTAL CELLS COUNTED % (AUTO) 100 %; WHITE BLOOD COUNT 5.4 10^3/uL (4.0-10.5)
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
[2018-05-27 11:28] LABS: APPEARANCE,URINE SLIGHTLY-CLOUDY; BILIRUBIN,URINE NEGATIVE (NEGATIVE); COLOR,URINE YELLOW; GLUCOSE, URINE NEGATIVE (NEGATIVE); KETONES,URINE NEGATIVE (NEGATIVE); LEUKOCYTE ESTERASE,URINE NEGATIVE (NEGATIVE); NITRITE,URINE NEGATIVE (NEGATIVE); PROTEIN,URINE NEGATIVE (NEGATIVE); UROBILINOGEN,URINE NEGATIVE mg/dL (<2.0)
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
[2018-05-27 11:41] VITALS: BP 163/90
== END 2018-05-27 11:42 | disposition home or self-care (01) ==
LOC: ER 09:33
DX: S00.532A Contusion of oral cavity, initial encounter (principal); S00.83XA Contusion of other part of head, initial encounter; S20.20XA Contusion of thorax, unspecified, initial encounter; Y04.2XXA Assault by strike against or bumped into by another person, initial encounter; I10 Essential (primary) hypertension
CPT/HCPCS: 36415; 70486; 81001; 85025; 99284

== ENCOUNTER 2018-07-31 19:59 | Emergency (ER) | payer SELFPAY ==
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
[2018-08-01] MEDS ORDERED: OXYCODONE-ACETAMINOPHEN 5-325 MG TABLET PO ONE (01:09)
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
[2018-08-01] MEDS ORDERED: DIPH/PERTUSS(ACELL)/TETANUS VAC/PF 0.5 ML SYR (>=10YO) IM ONE (01:17)
[2018-08-01] MEDS ORDERED: AMOXICILLIN TRIHYDRATE 500 MG CAPSULE PO ONE (01:17)
[2018-08-01 01:30] VITALS: BP 146/86
== END 2018-08-01 01:59 | disposition home or self-care (01) ==
LOC: ER 19:59
DX: S01.511A Laceration without foreign body of lip, initial encounter (principal); K13.79 Other lesions of oral mucosa; Y04.2XXA Assault by strike against or bumped into by another person, initial encounter; Z23 Encounter for immunization; I10 Essential (primary) hypertension; Z98.51 Tubal ligation status
CPT/HCPCS: 70150; 90471; 90715; 99284

== ENCOUNTER 2019-05-04 15:07 | Emergency (ER) | payer SELFPAY ==
[2019-05-04] MEDS ORDERED: ASPIRIN 81 MG TABLET, CHEWABLE PO ONE (16:08)
[2019-05-04] MEDS ORDERED: ONDANSETRON 4 MG TAB.RAPDIS PO ONE (16:08)
--- NOTE | 2019-05-04 16:10 | ER Document Report ---
ED Medical Screen (RME) - General Chief Complaint: Chest Congestion Stated Complaint: CHEST CONGESTION/COUGH/HEADACHE Time Seen by Provider: 05/04/19 15:59 Mode of Arrival: Ambulatory Information source: Patient Notes: Patient presents complaining of cough for the past week. Patient states she is had a squeezing chest pain off and on for the past 2 to 3 days. Patient does report occasional shortness of breath and nausea. Cough has been productive. Patient also complains of skin lightening to the corners of the mouth that is been for several months. I have greeted and performed a rapid initial assessment of this patient. A comprehensive ED assessment and evaluation of the patient, analysis of test results and completion of the medical decision making process will be conducted by additional ED providers. TRAVEL OUTSIDE OF THE [place] IN LAST 30 DAYS: No - Related Data Allergies/Adverse Reactions: No Known Allergies Allergy (Verified 12/08/16 09:18) Past Medical History - Past Medical History Cardiac Medical History: Reports: Hx Hypertension Neurological Medical History: Reports: Hx Migraine Renal/ Medical History: Denies: Hx Peritoneal Dialysis Past Surgical History: Reports: Hx Tubal Ligation, Other - Right lazer eye surgery - Immunizations Immunizations up to date: Yes Hx Diphtheria, Pertussis, Tetanus Vaccination: Yes - 08/01/18 Physical Exam - Vital signs Vitals: Temp Pulse Resp BP Pulse Ox 99.1 F 89 18 127/83 H 97 05/04/19 15:47 05/04/19 15:47 05/04/19 15:47 05/04/19 15:47 05/04/19 15:47 - Respiratory Respiratory status: No respiratory distress Breath sounds: Nonproductive cough - Cardiovascular Rhythm: Regular Heart sounds: S1 appreciated, S2 appreciated Course - Vital Signs Vital signs: Temp Pulse Resp BP Pulse Ox 99.1 F 89 18 127/83 H 97 05/04/19 15:47 05/04/19 15:47 05/04/19 15:47 05/04/19 15:47 05/04/19 15:47
--- NOTE | 2019-05-04 17:02 | ER Document Report ---
ED Respiratory Problem - General Chief Complaint: Cold Symptoms Stated Complaint: CHEST CONGESTION/COUGH/HEADACHE Time Seen by Provider: 05/04/19 15:59 Mode of Arrival: Ambulatory Notes: HPI: 48-year-old female who presents today 3 to 4 days of runny nose, congestion, and cough. She does have some mild chest discomfort with coughing. She denies any nausea, vomiting, fevers, diarrhea, calf pain or leg swelling. No recent trips or travel. She is here with 2 of her grandchildren who have similar symptoms. She states her symptoms occurred after she was taking care of 1 of her grandchildren who had a cold. Patient does not smoke. She has no family history of early heart attacks or strokes. ROS: See HPI All other review of systems reviewed and otherwise negative Reviewed vital signs and nursing note as charted by RN. PHYSICAL EXAM: CONSTITUTIONAL: Alert and oriented and responds appropriately to questions. Well-appearing; well-nourished HEAD: Normocephalic; atraumatic EYES: PERRL; Conjunctivae clear, sclerae non-icteric ENT: Normal nose; bilateral purulent nasal rhinorrhea; moist mucous membranes; pharynx without lesions noted NECK: Supple without meningismus; non-tender; no cervical lymphadenopathy, no masses CARD: Regular rate and rhythm; no murmurs; symmetric distal pulses RESP: Normal chest excursion without splinting or tachypnea; breath sounds clear and equal bilaterally; no wheezes, no rhonchi, no rales ABD/GI: Normal bowel sounds; non-distended; soft, non-tender BACK: The back appears normal and is non-tender to palpation EXT: Normal ROM in all joints; non-tender to palpation; no edema SKIN: No acute lesions noted NEURO: CN 2-12 intact; 5/5 bilateral upper and lower extremity strength with sensation intact to light touch PSYCH: The patient's mood and manner are appropriate. Grooming and personal hygiene are appropriate. TRAVEL OUTSIDE OF THE [place] IN LAST 30 DAYS: No - Related Data Allergies/Adverse Reactions: No Known Allergies Allergy (Verified 12/08/16 09:18) Past Medical History - General Information source: Patient - Social History Smoking Status: Never Smoker Frequency of alcohol use: Occasional Drug Abuse: None Family History: Reviewed & Not Pertinent Patient has suicidal ideation: No Patient has homicidal ideation: No - Past Medical History Cardiac Medical History: Reports: Hx Hypertension Neurological Medical History: Reports: Hx Migraine Renal/ Medical History: Denies: Hx Peritoneal Dialysis Past Surgical History: Reports: Hx Tubal Ligation, Other - Right lazer eye surgery - Immunizations Immunizations up to date: Yes Hx Diphtheria, Pertussis, Tetanus Vaccination: Yes - 08/01/18 Physical Exam - Vital signs Vitals: Temp Pulse Resp BP Pulse Ox 99.1 F 89 18 127/83 H 97 05/04/19 15:47 05/04/19 15:47 05/04/19 15:47 05/04/19 15:47 05/04/19 15:47 Course - Re-evaluation Re-evalutation: 05/04/19 17:02 Given the above history and physical examination I do believe that this is most likely viral in etiology. Patient has extensive nasal congestion with multiple sick contacts who also currently here being evaluated for similar complaints. Cardiac panel was ordered in triage as well as an x-ray of the chest. 05/04/19 17:52 EKG shows heart of 75, normal sinus rhythm, left axis deviation, no obvious ST elevation or depression. Flattening T waves in leads V2 through V6. Old EKG has been compared from 2018 showing no obvious appreciable change. 05/04/19 19:11 EKG and labs as recorded. X-ray of the chest as recorded. Some mild leukopenia. Not lymphopenic or neutropenic. No change in exam. Vital signs stable. Patient will be discharged home with strict return precautions and follow-up with the primary care provider. - Vital Signs Vital signs: Temp Pulse Resp BP Pulse Ox 99.1 F 89 18 127/83 H 97 05/04/19 15:47 05/04/19 15:47 05/04/19 15:47 05/04/19 15:47 05/04/19 15:47 - Laboratory Result Diagrams: 05/04/19 17:24 05/04/19 17:24 Laboratory results interpreted by me: 05/04/19 05/04/19 17:24 17:24 WBC 3.4 L RDW 14.2 H Eos % (Auto) 7.9 H Absolute Neuts (auto) 1.2 L Seg Neutrophils % 33.7 L Carbon Dioxide 31 H Discharge - Discharge Clinical Impression: Nasal congestion, Cough, Atypical chest pain Condition: Fair Disposition: HOME, SELF-CARE Additional Instructions: Come back immediately with any worsening cough, congestion, fevers, difficulty breathing or swallowing, leg swelling, or any other acute problems. Please follow-up with your primary care physician and take [id number] anti-cough and decongestions as discussed.
--- NOTE | 2019-05-04 17:08 | RADIOLOGY REPORT (SQ) ---
EXAM DESCRIPTION: CHEST 2 VIEWS COMPLETED DATE/TIME: 05/04/2019 4:55 pm REASON FOR STUDY: cough, cp COMPARISON: Chest x-ray 10/06/2015, 04/22/2015. EXAM PARAMETERS: NUMBER OF VIEWS: two views TECHNIQUE: Digital Frontal and Lateral radiographic views of the chest acquired. RADIATION DOSE: NA LIMITATIONS: none FINDINGS: LUNGS AND PLEURA: No consolidation, pneumothorax or pleural effusion. MEDIASTINUM AND HILAR STRUCTURES: No masses or contour abnormalities. HEART AND VASCULAR STRUCTURES: Heart normal size. No evidence for failure. BONES: No acute findings. HARDWARE: None in the chest. IMPRESSION: NO ACUTE RADIOGRAPHIC FINDING IN THE CHEST. TECHNICAL DOCUMENTATION: JOB ID: [id number] 2010 [employer]- All Rights Reserved Reading location - IP/workstation name: [email or web address]
[2019-05-04 17:39] LABS: ABSOLUTE EOSINOPHILS # (AUTO) 0.3 10^3/uL (0.0-0.6); ABSOLUTE LYMPHOCYTES (AUTO) 1.5 10^3/uL (0.5-4.7); ABSOLUTE MONOCYTES (AUTO) 0.4 10^3/uL (0.1-1.4); ABSOLUTE NEUT (AUTO) 1.2 10^3/uL (1.7-8.2); BASOPHILS % (AUTO) 1.1 % (0-2); EOSINOPHILS % (AUTO) 7.9 % (0-6); HEMATOCRIT 38.6 % (36.0-47.0); HEMOGLOBIN 12.9 g/dL (12.0-15.5); MEAN CORPUSCULAR HEMOGLOBIN 28.2 pg (27.0-33.4); MEAN CORPUSCULAR HGB CONC 33.5 g/dL (32.0-36.0); MEAN CORPUSCULAR VOLUME 84 fl (80-97); MONOCYTES % (AUTO) 12.3 % (3-13); PLATELET COUNT 190 10^3/uL (150-450); RED BLOOD COUNT 4.57 10^6/uL (3.72-5.28); RED CELL DISTRIBUTION WIDTH 14.2 % (11.5-14.0); SEGMENTED NEUTROPHILS % (AUTO) 33.7 % (42-78); TOTAL CELLS COUNTED % (AUTO) 100 %; WHITE BLOOD COUNT 3.4 10^3/uL (4.0-10.5)
[2019-05-04 17:53] LABS: ALBUMIN 3.8 g/dL (3.5-5.0); ALKALINE PHOSPHATASE 59 U/L (38-126); ANION GAP 6 (5-19); ASPARTATE AMINO TRANSFERASE 17 U/L (14-36); BILIRUBIN,DIRECT 0.3 mg/dL (0.0-0.4); BILIRUBIN,TOTAL 0.5 mg/dL (0.2-1.3); BLOOD UREA NITROGEN 18 mg/dL (7-20); CALCIUM 8.6 mg/dL (8.4-10.2); CARBON DIOXIDE 31 mmol/L (22-30); CHLORIDE 104 mmol/L (98-107); GLUCOSE 105 mg/dL (75-110); POTASSIUM 3.9 mmol/L (3.6-5.0); TOTAL PROTEIN 7.3 g/dL (6.3-8.2)
[2019-05-04 20:01] VITALS: BP 130/76
--- NOTE | 2019-05-04 21:19 | EKG REPORT ---
SEVERITY:- ABNORMAL ECG - SINUS RHYTHM LEFT ANTERIOR FASCICULAR BLOCK BORDERLINE T ABNORMALITIES, DIFFUSE LEADS : Confirmed by: Ansley Rebolledo MD 04-May-2019 21:18:05
== END 2019-05-04 20:01 | disposition home or self-care (01) ==
LOC: ER 15:07
DX: R07.89 Other chest pain (principal); R09.81 Nasal congestion; R05 Cough; R09.89 Other specified symptoms and signs involving the circulatory and respiratory systems; I10 Essential (primary) hypertension
CPT/HCPCS: 93005; 36415; 85025; 80053; 84484; 71046; 93010; S0119; 99284

== ENCOUNTER 2019-08-10 08:23 | Emergency (ER) | payer SELFPAY ==
[2019-08-10] MEDS ORDERED: LIDOCAINE 1% INJ-PF (10 MG/ML) 30 ML SDV INJ ONE (08:47)
[2019-08-10] MEDS ORDERED: HYDROCODONE/ACETAMINOPHEN 5-325 MG TABLET PO ONE (08:48)
--- NOTE | 2019-08-10 08:57 | ER Document Report ---
HPI - HPI Pain Level: 2 Context: Patient is a 48-year-old female who presents the emergency department with a chief complaint of a laceration to her right index finger and right hip pain. Patient was walking into her bathroom and fell through the bathroom floor and went to go grab onto the door and ended up sustaining a laceration to her right index finger. Patient is right handed. - ROS Systems Reviewed and Negative: Yes All other systems reviewed and negative - NEURO Neurology: DENIES: Headache, Weakness, Vision blurred - RESPIRATORY Respiratory: DENIES: Trouble Breathing, Coughing - GASTROINTESTINAL Gastrointestinal: DENIES: Abdominal Pain, Nausea, Patient vomiting - REPRODUCTIVE Reproductive: DENIES: : - MUSCULOSKELETAL Musculoskeletal: REPORTS: Extremity pain - right 2nd digit at laceration - DERM Skin Color: Normal Skin Problems: Laceration - anterior right 2nd digit Past Medical History - Social History Smoking Status: Never Smoker Chew tobacco use (# tins/day): No Drug Abuse: None Family History: Reviewed & Not Pertinent Patient has homicidal ideation: No - Past Medical History Cardiac Medical History: Reports: Hx Hypertension Pulmonary Medical History: Reports: Hx Pneumonia - "walking pneumonia" Neurological Medical History: Reports: Hx Migraine Renal/ Medical History: Denies: Hx Peritoneal Dialysis Past Surgical History: Reports: Hx Tubal Ligation, Other - Right lazer eye surgery - Immunizations Immunizations up to date: Yes Hx Diphtheria, Pertussis, Tetanus Vaccination: Yes - 08/01/18 Vertical Provider Document - CONSTITUTIONAL Agree With Documented VS: Yes Exam Limitations: No Limitations General Appearance: No Apparent Distress - INFECTION CONTROL TRAVEL OUTSIDE OF THE [place] IN LAST 30 DAYS: No - HEENT HEENT: Atraumatic, Normocephalic - RESPIRATORY Respiratory: No Respiratory Distress - CARDIOVASCULAR Cardiovascular: Regular Rate Pulses: Normal: Radial - MUSCULOSKELETAL/EXTREMETIES Musculoskeletal/Extremeties: FROM, Tender - at laceration site, Edema - to right 2nd digit - NEURO Level of Consciousness: Awake, Alert, Appropriate Motor/Sensory: No Motor Deficit, No Sensory Deficit - DERM Integumentary: Laceration - V shaped lacertion to right anterior 2nd digit Course - Re-evaluation Re-evalutation: 08/10/19 08:58 Patient has laceration to her right index finger. She is right-handed. She is able to flex and extend her digit with no difficulty. I offered patient to have an x-ray of her hip, but she states that she does not want it due to the cost. 08/10/19 10:36 Differential diagnosis includes but is not limited to: Laceration, foreign body, arterial injury, nerve injury, fracture or tendon injury. Patient was able to flex and extend her digits against resistance distal to the laceration with no apparent tendon injury, CMS intact distal to the injury with no evidence of nerve damage, bleeding was well-controlled in the emergency department. Wound was repaired. See procedure note. - Vital Signs Vital signs: Temp Pulse Resp BP Pulse Ox 97.9 F 72 20 160/100 H 98 08/10/19 08:35 08/10/19 08:29 08/10/19 08:29 08/10/19 08:29 08/10/19 08:29 Procedures - Laceration/Wound Repair Right Medial Finger 2nd digit Wound length (cm): 3 Wound's Depth, Shape: Superficial Laceration pre-procedure: Sterile PPE donned, Sterile drapes applied, Shur-Clens applied Anesthetic type: 1% Lidocaine Volume Anesthetic (mLs): 12 Wound explored: Clean, No foreign body removed Irrigated w/ Saline (mLs): 200 Wound Debrided: Minimal Wound Repaired With: Sutures Suture Size/Type: 5:0, Nylon Number of Sutures: 11 Post-procedure NV exam normal: Yes Complications: No Hands front picture: 1 - V shaped laceration Discharge - Discharge Clinical Impression: Finger laceration Qualifiers: Encounter type: initial encounter Finger: index finger Damage to nail status: without damage Foreign body presence: without foreign body Laterality: right Qualified Code(s): S61.210A - Laceration without foreign body of right index finger without damage to nail, initial encounter Condition: Stable Disposition: HOME, SELF-CARE Instructions: Antibiotic Ointment Protection ([facility]), Laceration Care ([facility]), Soap Cleansing ([facility]), Tetanus Immunization Given ([facility]) Additional Instructions: Please return to your primary doctor, the ED, or an urgent care in 7 days for suture removal. Return immediately if you develop spreading redness around the wound, pus from the wound, worsening pain, or a fever of >100.4. Keep the area clean and dry. Wash gently with soap and water twice daily and cover with antib iotic ointment. Take your antibiotic to prevent infection. Prescriptions: Cephalexin Monohydrate [Keflex 500 mg Capsule] 500 mg PO Q6H 5 Days #20 capsule Referrals: [facility] [Provider Group] - Follow up in 1 week [facility] [Provider Group] - Follow up in 1 week
[2019-08-10] MEDS ORDERED: DIPH/PERTUSS(ACELL)/TETANUS VAC/PF 0.5 ML SYR (>=10YO) IM ONE (10:28)
[2019-08-10 11:05] VITALS: BP 146/108
== END 2019-08-10 11:05 | disposition home or self-care (01) ==
LOC: ER 08:23
PROC: 0HQFXZZ Repair Right Hand Skin, External Approach (ICD-10-PCS; principal; 2019-08-10)
DX: S61.210A Laceration without foreign body of right index finger without damage to nail, initial encounter (principal); M25.551 Pain in right hip; W13.3XXA Fall through floor, initial encounter; I10 Essential (primary) hypertension
CPT/HCPCS: 99282; 90471; 90715; 12002; J3490

== ENCOUNTER 2019-08-17 03:45 | Emergency (ER) | payer SELFPAY ==
--- NOTE | 2019-08-17 04:38 | ER Document Report ---
Entered by JEAN STEINBERG SCRIBE 08/17/19 0427 Acting as scribe for:MARGARET KIM IV, MD ED General - General Chief Complaint: Finger Injury Stated Complaint: FINGER PAIN Time Seen by Provider: 08/17/19 04:10 Mode of Arrival: Ambulatory Information source: Patient Notes: This 49 year old female patient presents to the ED today with complaints of right index finger pain that started just prior to arrival. Patient describes the pain as a burning and stinging sensation. She reports that she was seen here x1 week ago for a laceration to her right index finger sustained after a fall and was discharged with instructions to return to the ED for suture removal, which is today. She notes mild numbness to that finger. TRAVEL OUTSIDE OF THE [place] IN LAST 30 DAYS: No - Related Data Allergies/Adverse Reactions: No Known Allergies Allergy (Verified 08/10/19 08:44) Past Medical History - General Information source: Patient, [facility] Records - Social History Smoking Status: Never Smoker Cigarette use (# per day): No Chew tobacco use (# tins/day): No Smoking Education Provided: No Family History: Reviewed & Not Pertinent Patient has suicidal ideation: No Patient has homicidal ideation: No - Past Medical History Cardiac Medical History: Reports: Hx Hypertension Pulmonary Medical History: Reports: Hx Pneumonia - "walking pneumonia" Neurological Medical History: Reports: Hx Migraine Past Surgical History: Reports: Hx Tubal Ligation, Other - Right laser eye surgery - Immunizations Immunizations up to date: Yes Hx Diphtheria, Pertussis, Tetanus Vaccination: Yes - 08/01/18 Review of Systems - Review of Systems Constitutional: No symptoms reported EENT: No symptoms reported Cardiovascular: No symptoms reported Respiratory: No symptoms reported Gastrointestinal: No symptoms reported Genitourinary: No symptoms reported Female Genitourinary: No symptoms reported Musculoskeletal: See HPI, Other - Right index finger pain Skin: No symptoms reported Hematologic/Lymphatic: No symptoms reported Neurological/Psychological: See HPI, Numbness - Right index finger -: Yes All other systems reviewed and negative Physical Exam - Vital signs Vitals: Temp 98.4 F 08/17/19 03:45 - General General appearance: Alert In distress: None - HEENT Head: Normocephalic, Atraumatic Eyes: Normal Pupils: PERRL - Respiratory Respiratory status: No respiratory distress Chest status: Nontender Breath sounds: Normal Chest palpation: Normal - Cardiovascular Rhythm: Regular Heart sounds: Normal auscultation Murmur: No Friction rub: No Gallop: None auscultated - Abdominal Inspection: Normal Distension: No distension Bowel sounds: Normal Tenderness: Nontender - Abdomen soft Organomegaly: No organomegaly - Back Back: Normal, Nontender - Extremities Hand: Other - Wound on right index finger appears to be healing well. No evidence of infection appreciated. Right index finger compartment is soft to palpation - Neurological Neuro grossly intact: Yes Orientation: AAOx4 - Psychological Associated symptoms: Normal affect, Normal mood - Skin Skin Temperature: Warm Skin Moisture: Dry Skin Color: Normal Course - Re-evaluation Re-evalutation: 08/17/19 05:08 Stitches removed by this MD. There is a very minimal amount of dehiscence present in the V shaped section of the laceration. Nursing was instructed to tack down the area with Steri-Strips and the patient compounding technician was instructed to place a dorsal splint on the finger and position of function to immobilize the area where the wound is. - Vital Signs Vital signs: Temp Pulse Resp BP Pulse Ox 98.4 F 85 16 153/102 H 96 08/17/19 03:49 08/17/19 03:49 08/17/19 03:49 08/17/19 03:49 08/17/19 03:49 Discharge - Discharge Clinical Impression: Visit for wound check Condition: Good Disposition: HOME, SELF-CARE Additional Instructions: Return to the Emergency Department without delay if any worse. HOME CARE INSTRUCTIONS & INFORMATION: Thank you for choosing us for your medical needs. We hope you're satisfied with the care you received. After you leave, you must properly care for your problem and, at the same time, observe its progress. Any condition can change. Some illnesses can change rapidly over hours or days. If your condition worsens, return to the Emergency Department or see your physician promptly. ABOUT YOUR X-RAYS AND EKG'S: If you had an EKG or X-rays taken, they have been read by the Emergency Physician. The X-rays and EKG's will also be read by a Radiologist or Housing Specialist within 24 hours. If discrepancies are noted, you will be notified by telephone. Please be certain the ED has a correct telephone number & address where you can be reached. Also, realize that some fractures or abnormalities do not show up on initial X-rays. If your symptoms continue, see your physician. ABOUT YOUR LABORATORY TEST: If you had laboratory tests, the results have been reviewed by the Emergency Physician. Some test results (for example cultures) may not be available for several days. You will be contacted if any test result shows you need additional treatment. Please be certain the ED has a correct telephone number and address where you can be reached. ABOUT YOUR MEDICATIONS: You will receive instructions on how to take your medicine on the prescription label you receive. Additional information may be provided by the Pharmacy. If you have questions afterwards, call the ED for clarification or further instructions. Some prescribed medications may cause drowsiness. Do not perform tasks such as driving a car or operating machinery without consulting your Pharmacist. If you feel you need a refill of pain medication, your condition will need re-evaluation. Please do not call for a refill of any medication. ABOUT YOUR SIGNATURE: Signature of this document acknowledges to followin. Understanding that you received emergency treatment and that you may be released before al medical problems are known or treated. Please be certain the ED has a correct phone number & address where you can be reached. 2. Acknowledgement that you will arrange for follow-up care as recommended. 3. Authorization for the Emergency Physician to provide information to your follow-up Physician in order to maximize your care. AT ANY TIME, IF YOUR SYMPTOMS CHANGE SIGNIFICANTLY OR WORSEN OR YOU DEVELOP NEW SYMPTOMS, RETURN TO THE EMERGENCY DEPARTMENT IMMEDIATELY FOR RE-EVALUATION. OUR GOAL IS TO PROVIDE EXCELLENT MEDICAL CARE! WE HOPE THAT WE HAVE MET YOUR EXPECTATIONS DURING YOUR EMERGENCY DEPARTMENT VISIT AND THAT YOU FEEL YOU HAVE RECEIVED EXCELLENT CARE! Laceration Care Your laceration has been sutured to keep the skin edges aligned during healing. The time of suture removal depends on the nature and location of your cut. Please follow the care instructions the doctor has outlined for you and return for further care, according to the schedule you've been given. Keep the wound and dressing clean. Unless you were told otherwise, you may shower daily, blotting the wound dry with a clean, unused towel. At other times, If the dressing gets wet or blood soaked, remove it and blot the wound dry, then reapply a new dressing. Unless you were instructed otherwise, dressings should be changed at least daily. If any signs of infection occur (swelling, redness, increasing tenderness, red streaks, tender lumps in the armpit or groin above the laceration, or fever), see the doctor immediately. Referrals: CRYSTAL JOHNSON MD [HONORARY] - 08/20/19 I personally performed the services described in the documentation, reviewed and edited the documentation which was dictated to the scribe in my presence, and it accurately records my words and actions.
[2019-08-17 06:22] VITALS: BP 145/97
== END 2019-08-17 06:23 | disposition home or self-care (01) ==
LOC: ER 03:45
DX: T81.33XA Disruption of traumatic injury wound repair, initial encounter (principal); Y83.8 Other surgical procedures as the cause of abnormal reaction of the patient, or of later complication, without mention of misadventure at the time of the procedure; R20.0 Anesthesia of skin; R20.8 Other disturbances of skin sensation; I10 Essential (primary) hypertension
CPT/HCPCS: 99283

== ENCOUNTER 2019-08-20 20:36 | Emergency (ER) | payer SELFPAY ==
[2019-08-20 20:45] VITALS: BP 140/111
[2019-08-20] MEDS ORDERED: ACETAMINOPHEN 325 MG TABLET PO ONE (21:17)
[2019-08-20] MEDS ORDERED: HYDROCODONE/ACETAMINOPHEN 5-325 MG TABLET PO ONE (21:29)
--- NOTE | 2019-08-20 21:33 | ER Document Report ---
HPI - HPI Time Seen by Provider: 08/20/19 21:19 Onset: Last week Onset/Duration: Persistent Quality of pain: Achy Pain Level: 4 Context: Patient states she is here for a wound recheck. Patient states that she had cut her finger on 08/10/19 and was seen and had sutures placed. Patient states that she had her sutures removed on 08/17/2019. Patient complains of continued pain. Patient denies any fever, purulent drainage or swelling. Patient denies any new injury. Patient has not followed up with orthopedics. Patient complains of continued pain which prompted her visit here tonight. Associated Symptoms: Other - Right second finger pain Exacerbated by: Movement Relieved by: Denies Similar symptoms previously: No Recently seen / treated by doctor: Yes - ROS ROS below otherwise negative: Yes Systems Reviewed and Negative: Yes All other systems reviewed and negative - CONSTITUTIONAL Constitutional: DENIES: Chills - NEURO Neurology: DENIES: Weakness - GASTROINTESTINAL Gastrointestinal: DENIES: Nausea, Patient vomiting - REPRODUCTIVE Reproductive: DENIES: : - MUSCULOSKELETAL Musculoskeletal: REPORTS: Extremity pain, Swelling - DERM Skin Color: Normal Notes: Laceration to right second finger covered with Steri-Strips Past Medical History - General Information source: Patient - Social History Smoking Status: Never Smoker Frequency of alcohol use: None Drug Abuse: None Family History: Reviewed & Not Pertinent Patient has homicidal ideation: No - Past Medical History Cardiac Medical History: Reports: Hx Hypertension Pulmonary Medical History: Reports: Hx Pneumonia - "walking pneumonia" Neurological Medical History: Reports: Hx Migraine Renal/ Medical History: Denies: Hx Peritoneal Dialysis Past Surgical History: Reports: Hx Tubal Ligation, Other - Right laser eye surge ry - Immunizations Immunizations up to date: Yes Hx Diphtheria, Pertussis, Tetanus Vaccination: Yes - 08/01/18 Vertical Provider Document - CONSTITUTIONAL Agree With Documented VS: Yes Exam Limitations: No Limitations General Appearance: WD/WN, No Apparent Distress - INFECTION CONTROL TRAVEL OUTSIDE OF THE [place] IN LAST 30 DAYS: No - HEENT HEENT: Atraumatic, Normocephalic - NECK Neck: Normal Inspection, Supple - RESPIRATORY Respiratory: Breath Sounds Normal, No Respiratory Distress - CARDIOVASCULAR Cardiovascular: Regular Rate, Regular Rhythm Pulses: Normal: Radial - MUSCULOSKELETAL/EXTREMETIES Musculoskeletal/Extremeties: Tender - Tenderness to right second finger, no erythema, patient with tenderness with palpation, wound appears to be healing without any signs of infection - NEURO Level of Consciousness: Awake, Alert, Appropriate - DERM Integumentary: Warm, Dry, No Rash Course - Re-evaluation Re-evalutation: 08/20/19 21:31 Patient declines moving finger through range of motion, patient with soft muscle compartments, no purulence or erythema noted. Patient encouraged to follow-up with hand specialist for persistent pain to the area. Good return precautions discussed with patient. - Vital Signs Vital signs: Temp Pulse Resp BP Pulse Ox 98.8 F 73 18 140/111 H 97 08/20/19 21:09 08/20/19 20:42 08/20/19 20:42 08/20/19 20:42 08/20/19 20:42 Discharge - Discharge Clinical Impression: Encounter for wound re-check, Finger pain, right Condition: Stable Disposition: HOME, SELF-CARE Additional Instructions: Return immediately for any new or worsening symptoms: Fever, redness, streaks, purulent drainage or any concerning new symptoms Followup with your primary care provider, call tomorrow to make a followup appointment Follow-up with a hand surgeon for further evaluation, call tomorrow to make a follow-up appointment. Keep wound covered as it continues to heal. Referrals: HOA YUAN, [ACTIVE STAFF] - Follow up tomorrow
== END 2019-08-20 21:30 | disposition home or self-care (01) ==
LOC: ER 20:36
DX: S61.201D Unspecified open wound of left index finger without damage to nail, subsequent encounter (principal); M79.644 Pain in right finger(s); W45.8XXD Other foreign body or object entering through skin, subsequent encounter
CPT/HCPCS: 99282